=== PATIENT | male | born 1985 | race African-American/Black ===

== ENCOUNTER 2016-12-19 18:05 | Emergency (ER) | payer MEDICAID ==
--- NOTE | 2016-12-19 18:12 | ER Document Report ---
ED Medical Screen (RME) - General Stated Complaint: SUICIDAL IDEATION Mode of Arrival: Ambulatory Information source: Patient Notes: Patient presents reporting suicidal ideations. Pt has been in contact with [facility]. Patient does report that he has had previous suicidal ideation with attempt in the past. Patient states that he has not been compliant with his medications. hx: Bipolar, hypertension, diabetes, schizophrenia I have greeted and performed a rapid initial assessment of this patient. A comprehensive ED assessment and evaluation of the patient, analysis of test results and completion of the medical decision making process will be conducted by additional ED providers. Physical Exam - Vital signs Vitals: Temp Pulse Resp BP Pulse Ox 98.6 F 87 14 135/67 H 96 12/19/16 18:12 12/19/16 18:12 12/19/16 18:12 12/19/16 18:12 12/19/16 18:12 - Psychological Associated symptoms: Restlessness, Visual hallucinations Course - Vital Signs Vital signs: Temp Pulse Resp BP Pulse Ox 98.6 F 87 14 135/67 H 96 12/19/16 18:12 12/19/16 18:12 12/19/16 18:12 12/19/16 18:12 12/19/16 18:12
--- NOTE | 2016-12-19 19:07 | EKG REPORT ---
SEVERITY:- OTHERWISE NORMAL ECG - SINUS RHYTHM BORDERLINE LEFT AXIS DEVIATION : Confirmed by: Shemar Hansen MD 19-Dec-2016 19:07:23
[2016-12-19 19:09] LABS: ABSOLUTE EOSINOPHILS # (AUTO) 0.1 10^3/uL (0.0-0.6); ABSOLUTE LYMPHOCYTES (AUTO) 1.9 10^3/uL (0.5-4.7); ABSOLUTE MONOCYTES (AUTO) 0.4 10^3/uL (0.1-1.4); ABSOLUTE NEUT (AUTO) 3.2 10^3/uL (1.7-8.2); BASOPHILS % (AUTO) 0.6 % (0-2); HEMATOCRIT 45.5 % (37.9-51.0); HEMOGLOBIN 15.3 g/dL (13.5-17.0); HGB HCT DIFFERENCE 0.4; LYMPHOCYTES % (AUTO) 33.5 % (13-45); MEAN CORPUSCULAR HEMOGLOBIN 27.3 pg (27.0-33.4); MEAN CORPUSCULAR HGB CONC 33.6 g/dL (32.0-36.0); MEAN CORPUSCULAR VOLUME 81 fl (80-97); MONOCYTES % (AUTO) 7.4 % (3-13); RED CELL DISTRIBUTION WIDTH 15.2 % (11.5-14.0); SEGMENTED NEUTROPHILS % (AUTO) 56.5 % (42-78); WHITE BLOOD COUNT 5.7 10^3/uL (4.0-10.5)
[2016-12-19 19:22] LABS: APPEARANCE,URINE CLEAR; BILIRUBIN,URINE NEGATIVE (NEGATIVE); GLUCOSE, URINE NEGATIVE (NEGATIVE); KETONES,URINE 20 mg/dL (NEGATIVE); LEUKOCYTE ESTERASE,URINE NEGATIVE (NEGATIVE); NITRITE,URINE NEGATIVE (NEGATIVE); PROTEIN,URINE NEGATIVE (NEGATIVE); URINE SPECIFIC GRAVITY 1.021; UROBILINOGEN,URINE NEGATIVE mg/dL (<2.0)
[2016-12-19 19:30] LABS: ALANINE AMINOTRANSFERASE 30 U/L (21-72); ALBUMIN 4.5 g/dL (3.5-5.0); ALCOHOL < 10 mg/dL (NONE DETECTED); ALKALINE PHOSPHATASE 60 U/L (38-126); ANION GAP 18 (5-19); ASPARTATE AMINO TRANSFERASE 26 U/L (17-59); BILIRUBIN,DIRECT 0.4 mg/dL (0.0-0.4); BILIRUBIN,TOTAL 0.7 mg/dL (0.2-1.3); BLOOD UREA NITROGEN 19 mg/dL (7-20); CARBON DIOXIDE 22 mmol/L (22-30); CHLORIDE 100 mmol/L (98-107); CREATININE RESULT 1.04 mg/dL (0.52-1.25); GLUCOSE 91 mg/dL (75-110); POTASSIUM 4.3 mmol/L (3.6-5.0); SODIUM 140.3 mmol/L (137-145); TOTAL PROTEIN 7.9 g/dL (6.3-8.2)
[2016-12-19 19:37] LABS: URINE BARBITURATES SCREEN NEGATIVE; URINE METHADONE SCREEN NEGATIVE; URINE OPIATES LOW NEGATIVE; URINE PHENCYCLIDINE SCREEN NEGATIVE
--- NOTE | 2016-12-19 22:52 | ER Document Report ---
ED Psych Disorder / Suicide - General Time seen by provider: 22:50 Mode of Arrival: Ambulatory Information source: Patient, Outside Facility Records TRAVEL OUTSIDE OF THE [place] IN LAST 30 DAYS: No - HPI Patient complains to provider of: Suicidal attempt Associated symptoms: Other - See above <TIFFANY BARAJAS - Last Filed: 12/20/16 01:11> <LISA SAINI - Last Filed: 12/20/16 03:29> - General Chief Complaint: Suicidal Ideation Stated Complaint: SUICIDAL IDEATION Notes: Patient is a 31 year old male, with a past medical history including self harm, who presents to the emergency department from a care home after attempted suicide earlier today. Patient reportedly tried to hang himself in the bathroom. Patient is unhappy with his living situation and reportedly would like to harm others in the care home. Patient is refusing food and would like his medications. (TIFFANY BARAJAS) - Related Data Allergies/Adverse Reactions: codeine Allergy (Verified 12/19/16 18:21) haloperidol [From Haldol] Allergy (Verified 12/19/16 18:21) lisinopril Allergy (Verified 12/19/16 18:21) Past Medical History - General Information source: Patient - Social History Smoking Status: Never Smoker Chew tobacco use (# tins/day): No Frequency of alcohol use: None Drug Abuse: None Family History: Reviewed & Not Pertinent Patient has suicidal ideation: No Patient has homicidal ideation: No <TIFFANY BARAJAS - Last Filed: 12/20/16 01:11> Review of Systems - Review of Systems Constitutional: No symptoms reported EENT: No symptoms reported Cardiovascular: No symptoms reported Respiratory: No symptoms reported Gastrointestinal: No symptoms reported Genitourinary: No symptoms reported Male Genitourinary: No symptoms reported Musculoskeletal: No symptoms reported Skin: No symptoms reported Hematologic/Lymphatic: No symptoms reported Neurological/Psychological: See HPI, Suicidal ideation -: Yes All other systems reviewed and negative <TIFFANY BARAJAS - Last Filed: 12/20/16 01:11> Physical Exam - Vital signs Interpretation: Normal - General General appearance: Appears well, Alert - HEENT Head: Normocephalic, Atraumatic - Respiratory Respiratory status: No respiratory distress Chest status: Nontender Breath sounds: Normal Chest palpation: Normal - Cardiovascular Rhythm: Regular Heart sounds: Normal auscultation Murmur: No - Abdominal Inspection: Normal Distension: No distension Bowel sounds: Normal Tenderness: Nontender Organomegaly: No organomegaly - Extremities General upper extremity: Normal inspection General lower extremity: Normal inspection - Neurological Neuro grossly intact: Yes Cognition: Normal Orientation: AAOx4 Fernando Coma Scale Eye Opening: Spontaneous Bronson Coma Scale Verbal: Oriented Fernando Coma Scale Motor: Obeys Commands Fernando Coma Scale Total: 15 Speech: Normal - Psychological Associated symptoms: Paranoid, Other - Odd affect - Skin Skin Temperature: Warm Skin Moisture: Dry Skin Color: Normal Skin irregularity: other - Multiple old healed linear lacerations to entire body <TIFFANY BARAJAS - Last Filed: 12/20/16 01:11> - Psychological Associated symptoms: Irritable <LISA SAINI - Last Filed: 12/20/16 03:29> - Vital signs Vitals: Temp Pulse Resp BP Pulse Ox 98.6 F 87 14 135/67 H 96 12/19/16 18:12 12/19/16 18:12 12/19/16 18:12 12/19/16 18:12 12/19/16 18:12 Course - Laboratory Result Diagrams: 12/19/16 18:40 12/19/16 18:40 <TIFFANY BARAJAS - Last Filed: 12/20/16 01:11> - Laboratory Result Diagrams: 12/19/16 18:40 12/19/16 18:40 <LISA SAINI - Last Filed: 12/20/16 03:29> - Re-evaluation Re-evalutation: 12/19 Patient presents after stating that he would like to hurt people at his residence and also implying that he was going to hurt himself. Patient is medically stable. He'll be held for psychiatric evaluation as he does seem to be a danger to himself and/or others at this time. (LISA SAINI) - Vital Signs Vital signs: Temp Pulse Resp BP Pulse Ox 98.6 F 87 14 135/67 H 96 12/19/16 18:12 12/19/16 18:12 12/19/16 18:12 12/19/16 18:12 12/19/16 18:12 - Laboratory Laboratory results interpreted by me: 03/12/19/16 12/19/16 18:40 18:40 18:45 RBC 5.60 H RDW 15.2 H Urine Ketones 20 H Salicylates < 1.0 L Acetaminophen < 10 L Discharge <TIFFANY BARAJAS - Last Filed: 12/20/16 01:11> <LISA SAINI - Last Filed: 12/20/16 03:29> - Discharge Clinical Impression: Homicidal ideation, Suicidal ideation Condition: Stable Disposition: PSYCH HOSP/UNIT Scribe Attestation: 12/20/16 03:29 I personally performed the services described in the documentation, reviewed and edited the documentation which was dictated to the scribe in my presence, and it accurately records my words and actions. (LISA SAINI) Scribe Documentation - Scribe Written by Scribe:: cole Lee, 12/19/16, [id number] acting as scribe for :: Flora <TIFFANY BARAJAS - Last Filed: 12/20/16 01:11>
[2016-12-20] MEDS ORDERED: LORAZEPAM INJ 2 MG/1 ML VIAL IM ONE (04:55)
--- NOTE | 2016-12-20 09:51 | ER Document Report ---
Doctor's Note Notes: 12/20/16 09:48 Chart reviewed. Patient is a 31-year-old male [facility] after he attempted to hang himself. Patient is under IVC papers. + In the ER he became agitated and banged his head on the wall several times. He did receive Ativan for the agitation. This morning he is drowsy from the Ativan but denies any pain or complaints. He is not very cooperative with the exam and is not motivated to answer many questions. He does have some minor swelling to his forehead but no open wound. He is neurologically intact within the constraints of his cooperation with exam. Will obtain head CT to ensure no intracranial injury. 12/20/16 15:57 Notified the patient was agitated. Reportedly he has been taking the bed sheets and trying to tie them in a manner such that he couldn't hang himself. He was also noted to try to plug the sink and fill it with water so that he could dunk his head in the sink. Zyprexa 10 mg IM ordered. Pt not agreeable or cooperative to take po meds. He will be placed back in restraints at this time given the fact that he is an active danger to himself and others and is not redirectable at all at this time.
--- NOTE | 2016-12-20 11:03 | PSYCHOLOGICAL NOTE ---
Psych Note - Psych Note Psych Note: Patient presented to [facility] ED with a past medical history including self harm, who presents to the emergency department from a shelter after attempted suicide earlier today. Patient reportedly tried to hang himself in the bathroom. Patient is unhappy with his living situation and reportedly would like to harm others in the shelter. Clinician conducted a chart review and noted the attending nurse indicated concerns at [id number]. The "patient noted to be in corner of room looking around at ceiling. This nurse approached patient room and noted patient to have both blankets tied in knots. This nurse took blankets and took knots out stating to patient "If you tie knots in these, I am going to have to take them from you." Patient sat on bed with flat affect staring at wall. Patient then jumped out of bed and began to run and hit his head against the wall. This occurred three times. Security was called for assistance when patient jumped out of bed." At this time the patient is unable to engage in evaluation. Will attempt at a later time. 1330 Patient still will not speak. Patient makes brief eye contact but contact is with head lowered and eyes appear to be looking through you. Patient is rocking on the bed. 1507 Patient was identified to be constructing a noose out of his blankets.
[2016-12-20] MEDS ORDERED: OLANZAPINE 5 MG TABLET PO ONE (15:15)
[2016-12-20] MEDS ORDERED: OLANZAPINE INJ/PF 10 MG SDV IM ONE (15:25)
[2016-12-20] MEDS ORDERED: OLANZAPINE 5 MG TABLET PO SCH (18:00)
[2016-12-20] MEDS ORDERED: BENZTROPINE MESYLATE 1 MG TABLET PO ONE (19:30)
[2016-12-20] MEDS: DIVALPROEX SODIUM 500 MG TAB.SR.24H PO SCH ×2 (19:44→19:45)
[2016-12-21] MEDS ORDERED: OLANZAPINE INJ/PF 10 MG SDV IM ONE (04:16)
[2016-12-21] MEDS ORDERED: LORAZEPAM INJ 2 MG/1 ML VIAL IM ONE ×2 (09:14→23:19)
--- NOTE | 2016-12-21 10:11 | ER Document Report ---
Doctor's Note Notes: 12/21/16 10:07 Medical rounds: Chart reviewed and patient interviewed briefly. Patient apparently is here on IVC papers, presented with history of self-injurious behavior and has continued to exhibit this behavior while in ED. This morning he was reported to be quite agitated, and lorazepam was ordered for sedation. According to nurses notes he did sleep some during the night last night. He refused to eat any breakfast. He has needed restraints intermittently for his own safety and that of the ankle staff. Vital signs are satisfactory. Lab work is normal. Patient is observed to be sitting on the bed, rocking back and forth. He is in no apparent distress. He acknowledges my presence by making eye contact, but refuses to speak. He is medically stable pending reevaluation by the psychosocial team. 12/21/16 10:11
[2016-12-21] MEDS: DIVALPROEX SODIUM 500 MG TAB.SR.24H PO SCH ×2 (10:43→17:38)
[2016-12-21] MEDS: OLANZAPINE 5 MG TABLET PO SCH ×2 (10:44→17:39)
[2016-12-21] MEDS: BENZTROPINE MESYLATE 1 MG TABLET PO SCH (10:44)
--- NOTE | 2016-12-21 15:54 | PSYCHOLOGICAL NOTE ---
Psych Note - Psych Note Psych Note: Conducted check-in with patient who is a 31-year-old male who presented to days ago via EMS from his residential long-term. Note until today patient has not been verbally engaging in conversation has demonstrated self-injurious behaviors such as slamming his head against the wall, attempting to hang himself , and filling his sink with water with the plan of drowning himself. Patient was also physically restrained until this morning. Today he has been cooperative and calm. Patient did minimally verbally engage in conversation and states he does not want to return to the long-term. He states he has missed treated there and that one of the managers has other males come into the home at night with the intent on "jumping him." Patient states he is only lives at the long-term for a short while and while he is unable to narrow down to a specific time frame he does endorse possibly a couple of months. Patient states prior to the long-term he was at [facility] and before that he lived in [place]. Patient does state he has act services, and in fact provides business cards for each of his different providers from his scrubs pocket. Patient provided no other information. Patient is a poor historian. This clinician did read off his listed home medications per the [facility] run sheet, which he did acknowledge as Depakote, HCTZ, [place] made, metoprolol, Prozac, Seroquel, trazodone. He isn't did acknowledge that he is allergic to codeine and Haldol and lisinopril and previously diagnosed with schizophrenia, bipolar 2 disorder, depression, diabetes, and hypertension. Patient is alert and oriented to name and location. Patient's mood today was guarded with flat affect. Patient did not answer if he was suicidal or homicidal. He did acknowledge making the statement that he would burn the house down to protect himself and kill all of the people in it if it meant keeping the individuals away from him that he believes present with the intent to jump him. Patient denied A/VH. At this time it is unclear if he is responding to internal stimuli. It is also unclear if he's presenting with delusions. Thought processes were guarded, but also goal oriented towards not returning to the long-term as he stated numerous times he did not want to go back, and also asked where he would be going from this ED. Conversational speech was low for rate, tone, and prosody. Intellectual abilities were estimated below average range. Attention and focus were fair. Insight, judgment, impulse control were poor. Unspecified schizophrenia and other psychotic disorder, per history Unspecified bipolar disorder per history Unspecified depressive disorder per history Diabetes, per history Hypertension, per history Patient security representative left message for residential long-term to return contact. Will continue to attempt to gain additional information as well as patient's MAR. patient security representative also called our [facility] act team and left a message requesting additional information. Asians recommended to continue under involuntary commitment, minimally for additional observation and medication administration as he is not been on his prescribed medications (because they were not provided) throughout his episode the past couple of days. Patient has done physical damage to the reddy in his room and has significant bruising on his forehead. He has been medically cleared and today is calmer and more cooperative. I consulted with Dr. Mtz in regards to the care and management of this patient.
[2016-12-21] MEDS ORDERED: OLANZAPINE 5 MG TABLET PO SCH (18:00)
[2016-12-22] MEDS: BENZTROPINE MESYLATE 1 MG TABLET PO SCH (10:19)
[2016-12-22] MEDS: OLANZAPINE 5 MG TABLET PO SCH ×2 (10:19→17:42)
--- NOTE | 2016-12-22 16:03 | PSYCHOLOGICAL NOTE ---
Psych Note - Psych Note Psych Note: Conducted check-in with patient who is a 31-year-old male. Was asked to speak with patient when he became upset when he thought he lost 3 business cards of his service providers. Patient reportedly had the cards in the pocket of his paper scrubs and discarded after his shower this morning. Discussed with patient that yesterday this clinician photocopied said cards and could provide him with a copy. Patient was appropriate expressed gratitude. Patient stated he wanted to know where he was going from here. Discussed with patient that he would in all likelihood be returning to the [facility]p prior to any possible relocation. Discussed with patient his current presentation which does not support continued criteria for involuntary commitment patient acknowledges he has no reason to be in this emergency room. Patient also reports he has no place to stay. Patient states he would like to go and live with a friend, but does not have his number with him to call and ask. Patient adamant that he is refusing to return to the usp. Patient states he is his own guardian. Patient denies suicidal/homicidal ideations, intent, plan, means. Patient's usp, [facility] states the patient is no longer a resident in his usp. Prompted to call marking machine tender. Mr. Gomez, marking machine tender of [facility] : states they cannot take the patient back into their facility due to exhibiting signs of being dangerous to staff, himself, and other residents. He states he is not required to provide a 30 day, or any notice to discharge. Contacted patient's ACTT provider [employer] with [facility]: [place] [facility] requesting return contact. Did track down the crisis number for [facility], who states the patient is not listed as one of their clients. Additionally, called and left a message for [facility] [place] [facility] requesting return contact as they were the last known provider. Spoke with [facility] who states the patient is a member of [facility] ACTT. She provided no meaningful information, except did provide phone contact for [facility]. She states the load out supervisor will call. County Commissioner, Alexander with [facility] states the patient has only received their service for about a month. She states he has decompensated throughout this time. She states she met with him the other day and evaluated at which time he stated the voices were very loud and controlling. Discussed with load out supervisor that patient today has been calm and cooperative, has a therapeutic valproic acid level; however, refuses to return to the usp. Also advised load out supervisor that the usp refuses to allow patient to return. Requested assistance from [facility] [place] [facility] in facilitating an alternate placement and or assistance and homeless senior living. Patient is alert and oriented. Mood has been calm and cooperative with normal affect. Patient denies suicidal/homicidal ideations, intent, plan, means. Patient denies A/VH; delusions not noted. Patient was noted to be talking with no one else physically in the room. Thought processes were goal oriented towards remaining in the ER/and/or not returning to the usp. Conversational speech was WNL for this patient for rate, tone, and prosody. Intellectual abilities were estimated in the lower average range. Attention and focus were fair. Insight, judgment, impulse control were poor. Unspecified schizophrenia and other psychotic disorder, per history Unspecified bipolar disorder per history Unspecified depressive disorder per history Diabetes, per history Hypertension, per history Patient is psychiatrically cleared and recommended for discharge. Throughout his stay patient demonstrated behaviors with the intent of not returning to the usp. Patient endorses this today during conversation. Patient further acknowledged that he had no reason to be here in the emergency room and would like to leave. Patient currently presents at his baseline functioning to include rocking back and forth on the bed, shaking his foot when talking, etc. Patient denies thoughts of wanting to harm himself. Patient denies suicidal or homicidal ideations. Patient is his own guardian. Patient's ACTT provider will attempt to coordinate with the usp, retrieval of his belongings, and also the phone number for the friend with whom he wants to stay.
[2016-12-22] MEDS: DIVALPROEX SODIUM 500 MG TAB.SR.24H PO SCH (17:43)
--- NOTE | 2016-12-22 20:48 | ER Document Report ---
Doctor's Note Notes: 12/22/16 20:47 Patient seen and evaluated history of bipolar schizophrenia questionable use of medication not suicidal or homicidal has been seen and evaluated by the psychiatric team and they felt that he can be discharged at this point acting will calm and he will be prescribed Depakote Zyprexa and Cogentin he has adequate outpatient follow-up. Is not emergently suicidal or homicidal.
--- NOTE | 2016-12-22 21:27 | ER Document Report ---
Doctor's Note Notes: 12/22/16 21:24 Went to evaluate the patient again with active production team advisor present acting member states she cannot drive as far as he needs to go to get him to his friend 's house tonight. The plan per psychiatry was that the acting would drive him to a safe house. The activity member states she cannot drive him to a safe house tonight it is out of their restriction area. For that reason I cannot safely discharge him until he is seen and evaluated by psychiatry tomorrow and outpatient arrangements are made. He has received his Depakote Zyprexa and Jones is agitated time her 1 mg of Ativan. We'll reassess in a.m. for discharge planning
[2016-12-22] MEDS ORDERED: LORAZEPAM 1 MG TABLET PO ONE (21:59)
[2016-12-22] MEDS ORDERED: DIPHENHYDRAMINE HCL 50 MG CAPSULE PO ONE (23:52)
[2016-12-23] MEDS ORDERED: LORAZEPAM INJ 2 MG/1 ML VIAL IM ONE (01:11)
[2016-12-23 07:07] VITALS: BP 130/95
[2016-12-23] MEDS: OLANZAPINE 5 MG TABLET PO SCH (09:54)
[2016-12-23] MEDS: BENZTROPINE MESYLATE 1 MG TABLET PO SCH (09:55)
[2016-12-23] MEDS: DIVALPROEX SODIUM 500 MG TAB.SR.24H PO SCH (09:55)
--- NOTE | 2016-12-23 12:08 | ER Document Report ---
Doctor's Note Notes: 12/23/16 12:08 Rounds: Chart reviewed and patient interviewed. Vital signs are all normal. Lab studies are essentially normal. Patient has been assessed by mental health feels he can be discharged for outpatient follow-up. A member of his psychiatric care team is here to take the patient. Patient appears to be medically stable for transfer or discharge. Bhanu Ariza M.D.
== END 2016-12-23 12:32 | disposition home or self-care (01) ==
LOC: ER 18:05
DX: F25.9 Schizoaffective disorder, unspecified (principal); F31.9 Bipolar disorder, unspecified; R22.0 Localized swelling, mass and lump, head; W22.01XA Walked into wall, initial encounter; Y92.238 Other place in hospital as the place of occurrence of the external cause; Z78.1 Physical restraint status; T14.91 Suicide attempt; X71 Intentional self-harm by drowning and submersion; X83.8XXA Intentional self-harm by other specified means, initial encounter; Y92.10 Unspecified residential institution as the place of occurrence of the external cause; R45.850 Homicidal ideations; Z88.5 Allergy status to narcotic agent; R45.1 Restlessness and agitation; E11.9 Type 2 diabetes mellitus without complications; I10 Essential (primary) hypertension; Z88.8 Allergy status to other drugs, medicaments and biological substances; Z91.14 Patient's other noncompliance with medication regimen
CPT/HCPCS: 93005; 99285; 96372; 36415; 80307 ×4; 85025; 80053; 81001; 80164; 70450; 93010; J3490 ×12; J2060 ×3

== ENCOUNTER 2016-12-27 00:37 | Emergency (ER) | payer MEDICAID ==
--- NOTE | 2016-12-27 01:44 | ER Document Report ---
ED General - General Chief Complaint: Psych Problem Stated Complaint: PSYCH EVAL Notes: Patient is a 31-year-old male with past medical history of bipolar disorder currently homeless who presents with suicidal ideation and self-inflicted wounds to his left upper extremity using a razor blade. Patient states that he cut his arm repeatedly in an attempt to kill himself as well as a stress relief. He admits to ongoing suicidal ideation. Reports his triggers include being homeless currently. He has not noted that the medication seemed to improve his symptoms. He has tried to harm himself in the past was recently discharged from this emergency department with similar complaints. He denies any additional acute medical concerns. He is unsure when his last tetanus immunization was given. Denies any homicidal ideation, delusions or hallucinations. TRAVEL OUTSIDE OF THE [place] IN LAST 30 DAYS: No - Related Data Allergies/Adverse Reactions: codeine Allergy (Verified 12/19/16 18:21) haloperidol [From Haldol] Allergy (Verified 12/19/16 18:21) lisinopril Allergy (Verified 12/19/16 18:21) Past Medical History - General Information source: Patient - Social History Smoking Status: Never Smoker Frequency of alcohol use: None Drug Abuse: None Lives with: Homeless Family History: Reviewed & Not Pertinent Renal/ Medical History: Denies: Hx Peritoneal Dialysis Review of Systems - Review of Systems Notes: Constitutional: Negative for fever. HENT: Negative for sore throat. Eyes: Negative for visual changes. Cardiovascular: Negative for chest pain. Respiratory: Negative for shortness of breath. Gastrointestinal: Negative for abdominal pain, vomiting or diarrhea. Genitourinary: Negative for dysuria. Musculoskeletal: Negative for back pain. Skin: Positive for multiple lacerations left forearm Neurological: Negative for headaches, weakness or numbness. 10 point ROS negative except as marked above and in HPI. Physical Exam - Vital signs Vitals: Temp Pulse Resp BP Pulse Ox 98.4 F 104 H 20 120/58 L 95 12/27/16 00:50 12/27/16 00:50 12/27/16 00:50 12/27/16 00:50 12/27/16 00:50 Interpretation: Tachycardic Notes: PHYSICAL EXAMINATION: GENERAL: Well-appearing, well-nourished and in no acute distress. HEAD: Atraumatic, normocephalic. EYES: Pupils equal round and reactive to light, extraocular movements intact, sclera anicteric, conjunctiva are normal. ENT: nares patent, oropharynx clear without exudates. Moist mucous membranes. NECK: Normal range of motion, supple without lymphadenopathy LUNGS: Breath sounds clear to auscultation bilaterally and equal. No wheezes rales or rhonchi. HEART: Regular rate and rhythm without murmurs ABDOMEN: Soft, nontender, normoactive bowel sounds. No guarding, no rebound. No masses appreciated. EXTREMITIES: Normal range of motion, no pitting or edema. No cyanosis. NEUROLOGICAL: No focal neurological deficits. Moves all extremities spontaneously and on command. PSYCH: Intellectual capacity seems to be at the low end of normal. Poor eye contact. Expressing suicidal ideation SKIN: Warm, Dry, normal turgor, multiple superficial lacerations to the left forearm and a single laceration to the right forearm Course - Re-evaluation Re-evalutation: 12/27/16 01:42 Patient presents after self-inflicting multiple superficial wounds to his left forearm. No wound requiring repair. Tetanus will be updated. He denies any additional medical complaints or concerns. Admits to ongoing SI with a plan to cut himself more and deeper. [place] homicidal ideation. He is currently homeless and states he has not been taking his medications during that time. Will proceed with medical screening laboratories, IVC and reassess 12/27/16 02:33 Medical screening laboratories are unremarkable. Patient remains calm and cooperative. I received paperwork have been filed. He is medically cleared for evaluation by psychiatry. - Vital Signs Vital signs: Temp Pulse Resp BP Pulse Ox 98.4 F 104 H 20 120/58 L 95 12/27/16 00:50 12/27/16 00:50 12/27/16 00:50 12/27/16 00:50 12/27/16 00:50 - Laboratory Result Diagrams: 12/27/16 01:13 12/27/16 01:13 Laboratory results interpreted by me: 12/27/16 12/27/16 12/27/16 01:13 01:13 01:13 RDW 15.2 H Monocytes % 15.0 H Sodium 145.6 H Urine Ketones TRACE H Salicylates < 1.0 L Acetaminophen < 10 L Valproic Acid 47.5 L - EKG Interpretation by Me Additional EKG results interpreted by me: 12/27/16 01:46 Sinus rhythm. Rate 89. No ST elevations or depressions. QTC is 419. Discharge - Discharge Clinical Impression: Suicidal ideation
[2016-12-27 01:51] LABS: ABSOLUTE EOSINOPHILS # (AUTO) 0.1 10^3/uL (0.0-0.6); ABSOLUTE LYMPHOCYTES (AUTO) 1.5 10^3/uL (0.5-4.7); BASOPHILS % (AUTO) 0.4 % (0-2); EOSINOPHILS % (AUTO) 1.6 % (0-6); HEMATOCRIT 41.9 % (37.9-51.0); HEMOGLOBIN 14.1 g/dL (13.5-17.0); HGB HCT DIFFERENCE 0.4; LYMPHOCYTES % (AUTO) 22.3 % (13-45); MEAN CORPUSCULAR HEMOGLOBIN 27.5 pg (27.0-33.4); MEAN CORPUSCULAR HGB CONC 33.5 g/dL (32.0-36.0); MEAN CORPUSCULAR VOLUME 82 fl (80-97); RED BLOOD COUNT 5.12 10^6/uL (4.35-5.55); RED CELL DISTRIBUTION WIDTH 15.2 % (11.5-14.0); SEGMENTED NEUTROPHILS % (AUTO) 60.7 % (42-78); WHITE BLOOD COUNT 6.5 10^3/uL (4.0-10.5)
[2016-12-27 02:01] LABS: APPEARANCE,URINE CLEAR; BILIRUBIN,URINE NEGATIVE (NEGATIVE); GLUCOSE, URINE NEGATIVE (NEGATIVE); KETONES,URINE TRACE mg/dL (NEGATIVE); LEUKOCYTE ESTERASE,URINE NEGATIVE (NEGATIVE); NITRITE,URINE NEGATIVE (NEGATIVE); PROTEIN,URINE NEGATIVE (NEGATIVE); URINE SPECIFIC GRAVITY 1.026; UROBILINOGEN,URINE NEGATIVE mg/dL (<2.0)
[2016-12-27 02:11] LABS: ALANINE AMINOTRANSFERASE 37 U/L (21-72); ALKALINE PHOSPHATASE 65 U/L (38-126); ANION GAP 14 (5-19); ASPARTATE AMINO TRANSFERASE 45 U/L (17-59); BILIRUBIN,DIRECT 0.2 mg/dL (0.0-0.4); BILIRUBIN,TOTAL 0.4 mg/dL (0.2-1.3); BLOOD UREA NITROGEN 14 mg/dL (7-20); CALCIUM 9.7 mg/dL (8.4-10.2); CARBON DIOXIDE 27 mmol/L (22-30); CHLORIDE 105 mmol/L (98-107); GLUCOSE 93 mg/dL (75-110); SODIUM 145.6 mmol/L (137-145); TOTAL PROTEIN 7.1 g/dL (6.3-8.2)
[2016-12-27 02:16] LABS: VALPROIC ACID 47.5 ug/mL (50.0-120.0)
[2016-12-27 02:21] LABS: ALCOHOL < 10 mg/dL (NONE DETECTED)
[2016-12-27] MEDS ORDERED: DIAZEPAM 5 MG TABLET PO ONE ×2 (02:32→23:47)
[2016-12-27] MEDS ORDERED: DIPH/PERTUSS(ACELL)/TETANUS VAC/PF 0.5 ML SYR (>=10YO) IM ONE (02:32)
[2016-12-27 02:53] LABS: URINE BARBITURATES SCREEN NEGATIVE; URINE METHADONE SCREEN NEGATIVE; URINE OPIATES LOW NEGATIVE; URINE PHENCYCLIDINE SCREEN NEGATIVE
[2016-12-27] MEDS ORDERED: DIAZEPAM INJ 10 MG/2 ML DISP.SYRIN IM ONE (03:19)
[2016-12-27] MEDS ORDERED: DIAZEPAM INJ 10 MG/2 ML DISP.SYRIN ONE (03:22)
[2016-12-27] MEDS ORDERED: OLANZAPINE INJ/PF 10 MG SDV IM ONE ×2 (03:47→17:52)
[2016-12-27] MEDS ORDERED: DIPHENHYDRAMINE HCL 50 MG/ML VIAL IV ONE (03:47)
--- NOTE | 2016-12-27 10:55 | EKG REPORT ---
SEVERITY:- OTHERWISE NORMAL ECG - SINUS RHYTHM LEFT AXIS DEVIATION : Confirmed by: Michelle Bolivar 27-Dec-2016 10:54:43
[2016-12-27] MEDS ORDERED: BENZTROPINE MESYLATE 1 MG TABLET PO ONE (17:52)
--- NOTE | 2016-12-27 20:22 | ER Document Report ---
Doctor's Note Notes: 12/27/16 20:21 Rounds: From earlier today, late entry now. Patient has been relatively calm most of the time here although he did express some feelings of agitation this afternoon. He is being evaluated for bipolar disorder and suicidal ideation. He is also homeless. Vital signs are all normal. Patient's lab studies were all normal. Patient appears to be medically stable for transfer or discharge. Bhanu Ariza M.D.
[2016-12-27] MEDS ORDERED: OLANZAPINE 5 MG TABLET PO ONE (23:47)
--- NOTE | 2016-12-28 09:15 | ER Document Report ---
Doctor's Note Notes: 12/28/16 09:15 As the rounding physician for our psychiatric patients, I have reviewed the chart, vitals, lab work. Patient has been examined and noted to be resting comfortably, denies any concerns . I am awaiting mental health in put. 12/28/16 10:09
--- NOTE | 2016-12-28 10:32 | PSYCHOLOGICAL NOTE ---
Psych Note - Psych Note Psych Note: Patient is a 31-year-old male with past medical history of bipolar disorder currently homeless who presents with suicidal ideation and self-inflicted wounds to his left upper extremity using a razor blade. Patient states that he cut his arm repeatedly in an attempt to kill himself as well as a stress relief. He admits to ongoing suicidal ideation. Reports his triggers include being homeless currently. 0830 Patient is currently unable to engage in evaluation because of medications; evaluation will occur at a later time. 1300 Attempted to engage patient, patient acts as if sleeping; will attempt again later 1600 Attempted to engage patient, unsucessful in getting patient to speak. Clinician notes that patient has no difficulties speaking with other [facility] staff.
--- NOTE | 2016-12-28 10:45 | PSYCHOLOGICAL NOTE ---
Psych Note - Psych Note Psych Note: Patient is a 31-year-old male with past medical history of bipolar disorder currently homeless who presents with suicidal ideation and self-inflicted wounds to his left upper extremity using a razor blade. Patient states that he cut his arm repeatedly in an attempt to kill himself as well as a stress relief. He admits to ongoing suicidal ideation. Reports his triggers include being homeless currently. Patient again acts as if unable to speak; clinician notes the patient told the attending nurse he was just going to sleep while her was here. Patient is demonstrating manipulative behaviour in an attempt to further his stay. Patient has not demonstrated any behaviours to indicate he is in psychosis or in a manic state. Clinician notes the when awake the pateint rocks back and forth; however, this is baseline for this patient. Patient has a higher level of care through his ACT Team. As of midnight last night his services were transferred to [facility] with production team member Ava. 298.9 (F29) Unspecified schizophrenia and other psychotic disorder, per history 296.80 (F31.9) Unspecified bipolar disorder per history 311 (F32.9) Unspecified depressive disorder per history Diabetes, per history Hypertension, per history Ash was contacted and confirmed he will be at [facility] ED to bulk picker his client. Patient is recommended to rescind IVC and is considered psychiatrically clear for discharge. Patient will continue with his higher level of care though his assigned ACT Team through [facility]. Dr. Mtz was consulted on the care and management of his patient; attending paco is in agreement with recommendations and disposition.
[2016-12-28 11:17] VITALS: BP 122/51
== END 2016-12-28 12:07 ==
LOC: ER 00:37
DX: S51.812A Laceration without foreign body of left forearm, initial encounter (principal); S51.811A Laceration without foreign body of right forearm, initial encounter; X78.8XXA Intentional self-harm by other sharp object, initial encounter; F25.9 Schizoaffective disorder, unspecified; F31.9 Bipolar disorder, unspecified; R00.0 Tachycardia, unspecified; Z59.0 Homelessness; Z78.1 Physical restraint status; Z88.5 Allergy status to narcotic agent; Z88.8 Allergy status to other drugs, medicaments and biological substances; Z23 Encounter for immunization
CPT/HCPCS: 93005; 99285; 96372; 90471; 96374; 36415; 80307 ×4; 85025; 80053; 81001; 80164; 90715; 93010; J3490 ×3; J3360; J1200

== ENCOUNTER 2016-12-31 05:46 | Emergency (ER) | payer MEDICAID ==
[2016-12-31 06:33] LABS: ABSOLUTE BASOPHILS # (AUTO) 0.1 10^3/uL (0.0-0.2); ABSOLUTE EOSINOPHILS # (AUTO) 0.2 10^3/uL (0.0-0.6); ABSOLUTE LYMPHOCYTES (AUTO) 3.1 10^3/uL (0.5-4.7); ABSOLUTE MONOCYTES (AUTO) 0.6 10^3/uL (0.1-1.4); ABSOLUTE NEUT (AUTO) 2.2 10^3/uL (1.7-8.2); BASOPHILS % (AUTO) 0.9 % (0-2); EOSINOPHILS % (AUTO) 3.3 % (0-6); HEMATOCRIT 40.5 % (37.9-51.0); HEMOGLOBIN 13.6 g/dL (13.5-17.0); HGB HCT DIFFERENCE 0.3; LYMPHOCYTES % (AUTO) 50.5 % (13-45); MEAN CORPUSCULAR HEMOGLOBIN 27.5 pg (27.0-33.4); MEAN CORPUSCULAR HGB CONC 33.5 g/dL (32.0-36.0); MEAN CORPUSCULAR VOLUME 82 fl (80-97); RED BLOOD COUNT 4.93 10^6/uL (4.35-5.55); RED CELL DISTRIBUTION WIDTH 14.4 % (11.5-14.0); SEGMENTED NEUTROPHILS % (AUTO) 35.3 % (42-78); WHITE BLOOD COUNT 6.2 10^3/uL (4.0-10.5)
[2016-12-31 06:49] LABS: APPEARANCE,URINE CLEAR; BILIRUBIN,URINE NEGATIVE (NEGATIVE); GLUCOSE, URINE NEGATIVE (NEGATIVE); KETONES,URINE NEGATIVE (NEGATIVE); LEUKOCYTE ESTERASE,URINE NEGATIVE (NEGATIVE); NITRITE,URINE NEGATIVE (NEGATIVE); PROTEIN,URINE NEGATIVE (NEGATIVE); UROBILINOGEN,URINE NEGATIVE mg/dL (<2.0)
[2016-12-31 06:53] LABS: ALANINE AMINOTRANSFERASE 30 U/L (21-72); ALCOHOL < 10 mg/dL (NONE DETECTED); ALKALINE PHOSPHATASE 67 U/L (38-126); ANION GAP 16 (5-19); ASPARTATE AMINO TRANSFERASE 36 U/L (17-59); BILIRUBIN,DIRECT 0.3 mg/dL (0.0-0.4); BILIRUBIN,TOTAL 0.3 mg/dL (0.2-1.3); BLOOD UREA NITROGEN 12 mg/dL (7-20); CALCIUM 9.5 mg/dL (8.4-10.2); CARBON DIOXIDE 23 mmol/L (22-30); CHLORIDE 106 mmol/L (98-107); CREATININE RESULT 0.83 mg/dL (0.52-1.25); GLUCOSE 108 mg/dL (75-110); POTASSIUM 3.6 mmol/L (3.6-5.0); SODIUM 145.2 mmol/L (137-145); TOTAL PROTEIN 7.2 g/dL (6.3-8.2)
[2016-12-31 07:03] LABS: URINE BARBITURATES SCREEN NEGATIVE; URINE METHADONE SCREEN NEGATIVE; URINE OPIATES LOW NEGATIVE; URINE PHENCYCLIDINE SCREEN NEGATIVE
--- NOTE | 2016-12-31 09:42 | PSYCHOLOGICAL NOTE ---
Psych Note - Psych Note Psych Note: Patient is a 31-year-old male who presented early this morning around 5 AM with c/o wanting to self-harm by means of cutting/stabbing himself. Patient has become well known to this clinician as well as this department with multiple recent presentations. Patient is reportedly diagnosed with schizophrenia and also receives enhanced services via [facility]. Patient reported upon arrival that his current stressors were arguing with roommates. Patient adamant this morning that he does not want to commit suicide or . Patient states he has a cutter and wanting to cut. Patient declines to report what he and his roommate were arguing about, but does state she did not tell him that he could not return. Patient states he does not want to go back. Discussed with patient that he is his own guardian he can choose whether or not he returns to live with his roommate are not; however, the hospital is unable to assist with any long-term placement. Patient was encouraged to utilize his ACTT crisis phone number. Patient states when he gets depressed he goes to the ER. Discussed with patient use and misuse of emergency services and again prompted patient to utilize his ACTT. Patient states he has been compliant with his medications, but states he is almost out. Patient's ACTT Provider, ELIZABETH Aleman states: they were aware he had presented to the emergency room and do not have concerns that the patient will attempt to commit suicide. meat team lead in agreement that patient does not meet criteria for involuntary commitment and states he will have a staff member present hopefully within the hour to meet with the patient and discussed his placement/residential options. Patient is alert and oriented. Mood is euthymic with normal affect. Patient denies suicidal/homicidal ideations, intent, plan, means. Patient acknowledges he has a cutter and does not intend to commit suicide via cutting. Patient denies A/VH; delusions not noted. Thought processes were organized. Conversational speech was WNL for rate, tone, and prosody. Intellectual abilities were estimated in the lower average range. Attention and focus were fair. Insight, judgment, impulse control were poor 298.9 (F29) Unspecified schizophrenia and other psychotic disorder, per history 296.80 (F31.9) Unspecified bipolar disorder per history 311 (F32.9) Unspecified depressive disorder per history Diabetes, per history Hypertension, per history Patient is psychiatrically cleared and recommended for discharge. A member from patient's enhanced service, ACTT, we will present and assist patient with discharging and identifying a living situation. Patient does not meet criteria for IVC per the [place] general statute 122C as he denies SI HI and is not actively engaging or following instructions of negative command hallucinations. I consulted with Dr. Mtz in regards to the care and management of this patient. ED MD is in agreement with disposition and recommendations.
--- NOTE | 2016-12-31 10:44 | ER Document Report ---
ED Psych Disorder / Suicide - General Mode of Arrival: Ambulatory Information source: Patient TRAVEL OUTSIDE OF THE [place] IN LAST 30 DAYS: No - HPI Patient complains to provider of: Agitated Onset: Just prior to arrival Quality of pain: No pain Suicide Risk Factors: Bipolar, Male, Schizophrenia Situational problems related to: Other - Roommate <SAROJ CORONA - Last Filed: 12/31/16 10:54> <KATELYNN CANELA - Last Filed: 12/31/16 21:25> - General Chief Complaint: Psych Problem Stated Complaint: SUICIDAL IDEATION Notes: Patient is a 31-year-old male, with a medical history including bipolar disorder and schizophrenia, presenting to the emergency department after having an argument with his roommate. Patient is well-known to this emergency department, and will not provide any information about the argument because he says he cannot remember. Patient states that his "roommate is a good friend and that he thinks they can work something out, they see eye to eye". (SAROJ CORONA) - Related Data Allergies/Adverse Reactions: codeine Allergy (Verified 12/19/16 18:21) haloperidol [From Haldol] Allergy (Verified 12/19/16 18:21) lisinopril Allergy (Verified 12/19/16 18:21) Past Medical History - General Information source: Patient, [facility] Records - Social History Smoking Status: Never Smoker Chew tobacco use (# tins/day): No Frequency of alcohol use: None Drug Abuse: None Family History: Reviewed & Not Pertinent - Past Medical History Cardiac Medical History: Reports: Hx Hypercholesterolemia, Hx Hypertension Renal/ Medical History: Denies: Hx Peritoneal Dialysis Psychiatric Medical History: Reports: Hx Bipolar Disorder, Hx Schizophrenia Surgical Hx: Negative <SAROJ CORONA - Last Filed: 12/31/16 10:54> Review of Systems - Review of Systems Constitutional: No symptoms reported EENT: No symptoms reported Cardiovascular: No symptoms reported Respiratory: No symptoms reported Gastrointestinal: No symptoms reported Genitourinary: No symptoms reported Male Genitourinary: No symptoms reported Musculoskeletal: No symptoms reported Skin: No symptoms reported Hematologic/Lymphatic: No symptoms reported Neurological/Psychological: See HPI, Depression -: Yes All other systems reviewed and negative <SAROJ CORONA - Last Filed: 12/31/16 10:54> Physical Exam - General General appearance: Alert, Lethargic - HEENT Head: Normocephalic, Atraumatic Eyes: Normal Pupils: PERRL - Respiratory Respiratory status: No respiratory distress Breath sounds: Normal - Cardiovascular Rhythm: Regular Heart sounds: Normal auscultation Murmur: No - Extremities General upper extremity: Normal inspection, Nontender General lower extremity: Normal inspection, Nontender - Neurological Neuro grossly intact: Yes Cognition: Normal [place] Coma Scale Eye Opening: Spontaneous [place] Coma Scale Verbal: Oriented [place] Coma Scale Motor: Obeys Commands [place] Coma Scale Total: 15 Speech: Normal - Psychological Associated symptoms: Normal affect, Normal mood - Skin Skin Temperature: Warm Skin Moisture: Dry Skin Color: Other - Multiple old cutting scars on extremities <SAROJ CORONA - Last Filed: 12/31/16 10:54> Course - Laboratory Result Diagrams: 12/31/16 06:20 12/31/16 06:20 <SAROJ CORONA - Last Filed: 12/31/16 10:54> - Laboratory Result Diagrams: 12/31/16 06:20 12/31/16 06:20 <KATELYNN CANELA - Last Filed: 12/31/16 21:25> - Re-evaluation Re-evalutation: 12/31/16 10:49 I personally performed the services described in the documentation, reviewed and edited the documentation which was dictated to my scribe in my presence, and it accurately records my words and actions. History presents emergency department following a argument with his roommate. He says he walked out called EMS came to the emergency department we've seen him on numerous occasions mental health has seen him and evaluated him a have contacted his acting they feel like he can be taken home. They've asked that I put in his thighs Zyprexa and Depakote doses that he would take in the morning. On examination she is alert and oriented he is not having medical complaints nor is he suicidal or homicidal. Does not pose a threat to himself or others at this moment will be discharged per the act team with follow-up per psychiatric team. 12/31/16 10:51 (KATELYNN CANELA) - Vital Signs Vital signs: Temp Pulse Resp BP Pulse Ox 98.0 F 100 16 125/80 100 12/31/16 11:00 12/31/16 11:00 12/31/16 11:00 12/31/16 11:00 12/31/16 11:00 - Laboratory Laboratory results interpreted by me: 12/31/16 12/31/16 12/31/16 06:05 06:20 06:20 RDW 14.4 H Seg Neutrophils % 35.3 L Lymphocytes % 50.5 H Sodium 145.2 H Urine Ascorbic Acid 40 H Salicylates < 1.0 L Acetaminophen < 10 L - EKG Interpretation by Me Additional EKG results interpreted by me: 12/31/16 10:51 EKG sinus tachycardia [address] segment elevation or depression (KATELYNN CANELA) Discharge <SAROJ CORONA - Last Filed: 12/31/16 10:54> <KATELYNN CANELA - Last Filed: 12/31/16 21:25> - Discharge Clinical Impression: schizophrenia unspecified Condition: Good Disposition: HOME, SELF-CARE Instructions: Bipolar Disorder ([facility]), Schizophrenia ([facility]) Additional Instructions: Please follow up with your enhanced community service provider, A [facility]. A member of your ACTT team will present and assist you in your discharge. Please take all of your medications as prescribed. Please utilize your 24 hour ACTT response/crisis numbers provided to you by your freight team associate, Ash. Scribe Documentation - Scribe Written by Shikha:: Saroj Corona 12/31/2016 1043 acting as scribe for :: Urbano <SAROJ CORONA - Last Filed: 12/31/16 10:54>
[2016-12-31] MEDS ORDERED: DIVALPROEX SODIUM 500 MG TAB.SR.24H PO ONE (10:47)
[2016-12-31] MEDS ORDERED: OLANZAPINE 5 MG TABLET PO ONE (10:47)
--- NOTE | 2016-12-31 10:48 | ER Document Report ---
ED Psych Disorder / Suicide - General Chief Complaint: Psych Problem Stated Complaint: SUICIDAL IDEATION Information source: Patient, DrFabrice Ellis, [facility] Records TRAVEL OUTSIDE OF THE [place] IN LAST 30 DAYS: No - HPI Patient complains to provider of: Other - thoughts of self harm; argument with roommate Onset: Just prior to arrival Onset was: Sudden Suicide Risk Factors: Lack of social support, Other mental health dx. Normal mood: Yes Associated symptoms: Normal affect, Normal mood Similar symptoms previously: Yes - last week Recently seen / treated by doctor: Yes - [facility] ER; [facility] - Related Data Allergies/Adverse Reactions: codeine Allergy (Verified 12/19/16 18:21) haloperidol [From Haldol] Allergy (Verified 12/19/16 18:21) lisinopril Allergy (Verified 12/19/16 18:21) Past Medical History - General Information source: Patient - Social History Smoking Status: Never Smoker Chew tobacco use (# tins/day): No Frequency of alcohol use: None Drug Abuse: None Family History: Reviewed & Not Pertinent - Past Medical History Cardiac Medical History: Reports: Hx Hypercholesterolemia, Hx Hypertension Renal/ Medical History: Denies: Hx Peritoneal Dialysis Psychiatric Medical History: Reports: Hx Bipolar Disorder, Hx Schizophrenia Surgical Hx: Negative Physical Exam - Vital signs Vitals: Temp Pulse Resp BP Pulse Ox 98.5 F 132 H 18 137/81 H 96 12/31/16 06:02 12/31/16 06:02 12/31/16 06:02 12/31/16 06:02 12/31/16 06:02 Course - Vital Signs Vital signs: Temp Pulse Resp BP Pulse Ox 98.5 F 107 H 16 128/87 H 97 12/31/16 06:02 12/31/16 07:00 12/31/16 07:00 12/31/16 07:00 12/31/16 07:00 - Laboratory Result Diagrams: 12/31/16 06:20 12/31/16 06:20 Laboratory results interpreted by me: 12/31/16 12/31/16 12/31/16 06:05 06:20 06:20 RDW 14.4 H Seg Neutrophils % 35.3 L Lymphocytes % 50.5 H Sodium 145.2 H Urine Ascorbic Acid 40 H Salicylates < 1.0 L Acetaminophen < 10 L Discharge - Discharge Condition: Good Disposition: HOME, SELF-CARE Instructions: Schizophrenia ([facility]), Bipolar Disorder ([facility]) Additional Instructions: Please follow up with your enhanced community service provider, [facility]. A member of your ACTT team will present and assist you in your discharge. Please take all of your medications as prescribed. Please utilize your 24 hour ACTT response/crisis numbers provided to you by your steam trap worker, Ash.
[2016-12-31 11:04] VITALS: BP 125/80
--- NOTE | 2016-12-31 13:11 | EKG REPORT ---
SEVERITY:- ABNORMAL ECG - SINUS TACHYCARDIA LEFT ANTERIOR FASCICULAR BLOCK : Confirmed by: Aga Pollard MD 31-Dec-2016 13:10:29
== END 2016-12-31 11:04 | disposition home or self-care (01) ==
LOC: ER 05:46
DX: F20.9 Schizophrenia, unspecified (principal); R45.851 Suicidal ideations
CPT/HCPCS: 93005; 99285; 36415; 80307 ×4; 85025; 80053; 81001; 93010; J3490 ×2

== ENCOUNTER 2016-12-31 21:56 | Emergency (ER) | payer MEDICAID ==
[2016-12-31 23:41] LABS: ABSOLUTE EOSINOPHILS # (AUTO) 0.2 10^3/uL (0.0-0.6); ABSOLUTE LYMPHOCYTES (AUTO) 2.8 10^3/uL (0.5-4.7); ABSOLUTE MONOCYTES (AUTO) 0.7 10^3/uL (0.1-1.4); ABSOLUTE NEUT (AUTO) 2.2 10^3/uL (1.7-8.2); BASOPHILS % (AUTO) 0.8 % (0-2); EOSINOPHILS % (AUTO) 2.9 % (0-6); HEMATOCRIT 38.6 % (37.9-51.0); HEMOGLOBIN 13.1 g/dL (13.5-17.0); HGB HCT DIFFERENCE 0.7; LYMPHOCYTES % (AUTO) 47.4 % (13-45); MEAN CORPUSCULAR HEMOGLOBIN 27.1 pg (27.0-33.4); MEAN CORPUSCULAR HGB CONC 33.9 g/dL (32.0-36.0); MEAN CORPUSCULAR VOLUME 80 fl (80-97); MONOCYTES % (AUTO) 12.1 % (3-13); RED BLOOD COUNT 4.82 10^6/uL (4.35-5.55); SEGMENTED NEUTROPHILS % (AUTO) 36.8 % (42-78); WHITE BLOOD COUNT 5.9 10^3/uL (4.0-10.5)
[2017-01-01 00:01] LABS: ALANINE AMINOTRANSFERASE 33 U/L (21-72); ALKALINE PHOSPHATASE 65 U/L (38-126); ANION GAP 10 (5-19); ASPARTATE AMINO TRANSFERASE 29 U/L (17-59); BILIRUBIN,DIRECT 0.1 mg/dL (0.0-0.4); BILIRUBIN,TOTAL 0.2 mg/dL (0.2-1.3); BLOOD UREA NITROGEN 13 mg/dL (7-20); CALCIUM 9.4 mg/dL (8.4-10.2); CARBON DIOXIDE 27 mmol/L (22-30); CHLORIDE 105 mmol/L (98-107); CREATININE RESULT 0.78 mg/dL (0.52-1.25); GLUCOSE 86 mg/dL (75-110); POTASSIUM 4.2 mmol/L (3.6-5.0); SODIUM 141.9 mmol/L (137-145); TOTAL PROTEIN 6.9 g/dL (6.3-8.2)
[2017-01-01 00:06] LABS: ALCOHOL < 10 mg/dL (NONE DETECTED)
--- NOTE | 2017-01-01 00:07 | ER Document Report ---
ED Psych Disorder / Suicide - General Chief Complaint: Psych Problem Stated Complaint: ARM LACERATIONS/EDIVC Time seen by provider: 00:06 Mode of Arrival: Stretcher Information source: Outside Facility Records TRAVEL OUTSIDE OF THE [place] IN LAST 30 DAYS: No - HPI Patient complains to provider of: Bizarre behavior, Self injury Onset: Just prior to arrival Onset was: Sudden Quality of pain: No pain Suicide Risk Factors: Male, Schizophrenia Injury to: Upper extremity Normal mood: No Associated symptoms: Flat affect, Restlessness Similar symptoms previously: Yes Recently seen / treated by doctor: Yes Notes: Patient is a 31-year-old male with a history of mental illness who came to the emergency room via EMS for self injury, at time of initial evaluation patient is sitting on the bed, he is rocking back and forth, picking at his superficial open wounds on the left forearm, he is nonverbal and will not answer my questions, he has evidence of old cuts to his face, his forehead and his bilateral upper extremities - Related Data Allergies/Adverse Reactions: codeine Allergy (Verified 12/19/16 18:21) haloperidol [From Haldol] Allergy (Verified 12/19/16 18:21) lisinopril Allergy (Verified 12/19/16 18:21) Past Medical History - General Information source: Outside Facility Records - Social History Smoking Status: Unknown if Ever Smoked Family History: Reviewed & Not Pertinent - Past Medical History Cardiac Medical History: Reports: Hx Hypercholesterolemia, Hx Hypertension Renal/ Medical History: Denies: Hx Peritoneal Dialysis Psychiatric Medical History: Reports: Hx Bipolar Disorder, Hx Schizophrenia Review of Systems - Review of Systems Constitutional: No symptoms reported EENT: No symptoms reported Cardiovascular: No symptoms reported Respiratory: No symptoms reported Gastrointestinal: No symptoms reported Genitourinary: No symptoms reported Male Genitourinary: No symptoms reported Musculoskeletal: No symptoms reported Skin: No symptoms reported Hematologic/Lymphatic: No symptoms reported Neurological/Psychological: See HPI -: Yes All other systems reviewed and negative Physical Exam - Vital signs Vitals: Temp Pulse BP Pulse Ox 98.4 F 102 H 157/91 H 95 12/31/16 22:08 12/31/16 22:08 12/31/16 22:08 12/31/16 22:08 Interpretation: Tachycardic - General General appearance: Alert - HEENT Head: Normocephalic, Other - Scarring to forehead from previous cutting behavior Eyes: Normal Conjunctiva: Normal Extraocular movements intact: Yes Eyelashes: Normal Pupils: PERRL Mucous membranes: Normal Pharynx: Normal - Respiratory Respiratory status: No respiratory distress - Cardiovascular Rhythm: Regular, Tachycardia - Abdominal Inspection: Normal - Back Back: Normal - Extremities Forearm: Other - Fresh superficial lacerations to the left forearm, scarring from previous superficial lacerations to the right forearm - Psychological Associated symptoms: Flat affect, Restlessness - Skin Skin Temperature: Warm Skin Moisture: Dry Skin Color: Normal Course - Re-evaluation Re-evalutation: 01/01/17 04:08 On initial evaluation patient was rocking the bed, picking at his superficial lacerations to the left forearm, and nonverbal, he would look at me when I asked a question but would not answer the question, a few hours later nursing staff reports that he is much more cooperative and talkative, at which time he reports that he is having suicidal thoughts, when I asked him if he had a plan he looked around the room and said radha watering here and sheets, he states that he has not been taking his medications as directed, but he is unable to give me any other information regarding his condition or the medications that he is supposed to be taking, he is agreeable to staying in the emergency room for an evaluation by mental health team as a voluntary patient, since patient has been in this emergency room multiple times over the past week for similar concerns, he will remain in the emergency room until the mental health team can reevaluate him and make arrangements with his ACTT wire walker to ensure patient safety 01/01/17 04:10 Patient's wounds have been dressed, his last tetanus shot was given here on and is therefore up-to-date, patient is now resting comfortably - Vital Signs Vital signs: Temp Pulse Resp BP Pulse Ox 98.4 F 102 H 157/91 H 95 12/31/16 22:08 12/31/16 22:08 12/31/16 22:08 12/31/16 22:08 - Laboratory Result Diagrams: 12/31/16 23:33 12/31/16 23:33 Laboratory results interpreted by me: 12/31/16 12/31/16 23:33 23:33 Hgb 13.1 L Seg Neutrophils % 36.8 L Lymphocytes % 47.4 H Salicylates < 1.0 L Acetaminophen < 10 L - EKG Interpretation by Me EKG shows normal: Sinus rhythm Rate: Normal Rhythm: NSR Discharge - Discharge Clinical Impression: Self-destructive behavior Condition: Stable Disposition: PSYCH HOSP/UNIT
[2017-01-01] MEDS ORDERED: LORAZEPAM INJ 2 MG/1 ML VIAL IM ONE (00:15)
[2017-01-01 09:20] LABS: APPEARANCE,URINE CLEAR; BILIRUBIN,URINE NEGATIVE (NEGATIVE); GLUCOSE, URINE NEGATIVE (NEGATIVE); KETONES,URINE TRACE mg/dL (NEGATIVE); LEUKOCYTE ESTERASE,URINE NEGATIVE (NEGATIVE); NITRITE,URINE NEGATIVE (NEGATIVE); PROTEIN,URINE NEGATIVE (NEGATIVE); URINE SPECIFIC GRAVITY 1.032; UROBILINOGEN,URINE NEGATIVE mg/dL (<2.0)
--- NOTE | 2017-01-01 09:37 | ER Document Report ---
Doctor's Note Notes: 01/01/17 09:36 Resting quietly on bed. No complaints. Plan is to discharge today. His ride is supposed to be here by noon today to pick him up. 01/01/17 13:10 Patient is being discharged. Blood pressure is a little elevated but he has not taken his blood pressure medication. He has medication at home but does not know what the name of it is. He is being advised by the nurse to please take his blood pressure medicine when he gets home.
[2017-01-01 09:41] LABS: URINE BARBITURATES SCREEN NEGATIVE; URINE METHADONE SCREEN NEGATIVE; URINE OPIATES LOW NEGATIVE; URINE PHENCYCLIDINE SCREEN NEGATIVE
--- NOTE | 2017-01-01 09:56 | ER Document Report ---
ED Psych Disorder / Suicide - General Mode of Arrival: Stretcher Information source: Patient, [facility] Office - ACTT Provider, A, [facility] Records TRAVEL OUTSIDE OF THE [place] IN LAST 30 DAYS: No - HPI Patient complains to provider of: Self injury - cuts on arms noted as superficial Onset: Just prior to arrival Suicide Risk Factors: Male, Schizophrenia Situational problems related to: Other - roommate Normal mood: Yes Associated symptoms: Normal affect - Affect is WNL for patient, Normal mood Similar symptoms previously: Yes - 12/31/16 Recently seen / treated by doctor: Yes - ED MD as well as ACTT MD <FAYE ROBERTS - Last Filed: 01/01/17 09:51> <RUBÉN JENKINS - Last Filed: 01/01/17 11:25> - General Chief Complaint: Psych Problem Stated Complaint: ARM LACERATIONS/EDIVC - Related Data Allergies/Adverse Reactions: codeine Allergy (Verified 12/19/16 18:21) haloperidol [From Haldol] Allergy (Verified 12/19/16 18:21) lisinopril Allergy (Verified 12/19/16 18:21) Past Medical History - General Information source: Patient, OM Records, Outside Facility Records - Social History Smoking Status: Unknown if Ever Smoked Family History: Reviewed & Not Pertinent - Past Medical History Cardiac Medical History: Reports: Hx Hypercholesterolemia, Hx Hypertension Renal/ Medical History: Denies: Hx Peritoneal Dialysis Psychiatric Medical History: Reports: Hx Bipolar Disorder, Hx Schizophrenia <FAYE ROBERTS - Last Filed: 01/01/17 09:51> Course - Laboratory Result Diagrams: 12/31/16 23:33 12/31/16 23:33 <FAYE ROBERTS - Last Filed: 01/01/17 09:51> - Laboratory Result Diagrams: 12/31/16 23:33 12/31/16 23:33 <RUBÉN JENKINS - Last Filed: 01/01/17 11:25> - Vital Signs Vital signs: Temp Pulse Resp BP Pulse Ox 97.6 F 69 14 124/82 95 01/01/17 07:20 01/01/17 07:20 01/01/17 07:20 01/01/17 07:20 01/01/17 07:20 - Laboratory Laboratory results interpreted by me: 12/31/16 12/31/16 01/01/17 23:33 23:33 08:45 Hgb 13.1 L Seg Neutrophils % 36.8 L Lymphocytes % 47.4 H Urine Ketones TRACE H Urine Ascorbic Acid 40 H Salicylates < 1.0 L Acetaminophen < 10 L Discharge <FAYE ROBERTS - Last Filed: 01/01/17 09:51> <RUBÉN JENKINS - Last Filed: 01/01/17 11:25> - Discharge Clinical Impression: Self-injurious behavior Condition: Stable Disposition: HOME, SELF-CARE Instructions: Schizophrenia ([facility]), Bipolar Disorder ([facility]) Additional Instructions: A member form your ACT Team is picking you up. Please work with your ACTT to utilize their 21/04 services, to include their crisis number. Please return to the ER should your symptoms worsen.
[2017-01-01] MEDS ORDERED: DIVALPROEX SODIUM 250 MG TABLET.DR PO ONE (10:10)
[2017-01-01] MEDS ORDERED: BENZTROPINE MESYLATE 1 MG TABLET PO ONE (10:11)
[2017-01-01] MEDS ORDERED: OLANZAPINE 5 MG TABLET PO ONE (10:11)
--- NOTE | 2017-01-01 10:12 | PSYCHOLOGICAL NOTE ---
Psych Note - Psych Note Psych Note: Patient is a 31 year old male who who presented via EMS last night with superficial self inflicted cuts to his arms. Patient is well known to this department and clinician as he has presented 4 x within the past 2 weeks with similar type complaints. Patient was seen and evaluated and discharged yesterday after he presented via EMS for depression secondary to an argument with his roommate. Patient today states he does not remember why he cut. Patient denies any current complaints. Patient's ACTT Provider, ELIZABETH Aleman states: a member from his team will present in the next few hours to pick the patient up. Requested the ACT team continue to work with the patient in regards to utilizing alternatives to EMS, such as their mobile crisis number as they are his 24 hr service. Patient is alert and oriented. Mood is euthymic with normal affect. Patient denies suicidal/homicidal ideations, intent, plan, means. Patient acknowledges he has a cutter and does not intend to commit suicide via cutting. Patient denies A/VH; delusions not noted. Thought processes were organized. Conversational speech was WNL for rate, tone, and prosody. Intellectual abilities were estimated in the lower average range. Attention and focus were fair. Insight, judgment, impulse control were poor 298.9 (F29) Unspecified schizophrenia and other psychotic disorder, per history 296.80 (F31.9) Unspecified bipolar disorder per history 311 (F32.9) Unspecified depressive disorder per history Diabetes, per history Hypertension, per history Patient is psychiatrically cleared and recommended for discharge. A member from patient's enhanced service, ACTT will present and assist patient with discharging. Patient does not meet criteria for IVC per the [place] general statute 122C as he denies SI HI and is not actively engaging or following instructions of negative command hallucinations. I consulted with Dr. Mtz in regards to the care and management of this patient. ED MD is in agreement with disposition and recommendations.
[2017-01-01 13:43] VITALS: BP 152/98
--- NOTE | 2017-01-01 22:10 | EKG REPORT ---
SEVERITY:- OTHERWISE NORMAL ECG - SINUS ARRHYTHMIA, RATE 79-115 LEFT AXIS DEVIATION : Confirmed by: Aga Pollard MD 01-Jan-2017 22:09:04
== END 2017-01-01 12:50 | disposition home or self-care (01) ==
LOC: ER 21:56
DX: S41.119A Laceration without foreign body of unspecified upper arm, initial encounter (principal); X78.9XXA Intentional self-harm by unspecified sharp object, initial encounter
CPT/HCPCS: 93005; 99285; 96372; 36415; 80307 ×4; 85025; 80053; 81001; 93010; J3490 ×3; J2060

== ENCOUNTER 2017-01-08 03:33 | Emergency (ER) | payer MEDICAID, OTHER ==
[2017-01-08] MEDS ORDERED: LORAZEPAM INJ 2 MG/1 ML VIAL IM ONE (03:43)
[2017-01-08] MEDS ORDERED: DIPHENHYDRAMINE HCL 50 MG/ML VIAL IM ONE (03:43)
[2017-01-08] MEDS ORDERED: ZIPRASIDONE MESYLATE INJ/PF 20 MG SDV IM ONE (03:45)
--- NOTE | 2017-01-08 04:12 | ER Document Report ---
ED General - General Chief Complaint: Psych Problem Stated Complaint: PSYCH EVAL TRAVEL OUTSIDE OF THE [place] IN LAST 30 DAYS: No - HPI Notes: Patient is a 31-year-old with schizophrenia and psychotic disorder, bipolar disorder and depression presents to emergency department with report that he has been noncompliant with his psychiatric medications since discharge back to the [facility]. Patient is supposed to be on Zyprexa, Depakote, Cogentin according to the medical record. However report is that he is not been compliant with these medications for over a week. Patient was inappropriate at the [facility] throwing things around the kitchen and when police came by he walked out of the [facility] and attempted to lay down in front of a moving vehicle. Patient has history of multiple visits for the same and for cutting with multiple lacerations. Patient had a negative head CT on 12/20/16. Patient on questioning will not answer but he follows the examiner. Patient was ambulatory following commands for EMS. - Related Data Allergies/Adverse Reactions: codeine Allergy (Verified 12/19/16 18:21) haloperidol [From Haldol] Allergy (Verified 12/19/16 18:21) lisinopril Allergy (Verified 12/19/16 18:21) Past Medical History - General Information source: Patient - Social History Smoking Status: Former Smoker Frequency of alcohol use: None Drug Abuse: None Lives with: Other - [facility] Family History: Reviewed & Not Pertinent - Past Medical History Cardiac Medical History: Reports: Hx Hypercholesterolemia, Hx Hypertension Renal/ Medical History: Denies: Hx Peritoneal Dialysis Psychiatric Medical History: Reports: Hx Bipolar Disorder, Hx Schizophrenia Review of Systems - Review of Systems -: Yes ROS unobtainable due to patient's medical condition Respiratory: denies: Cough Gastrointestinal: denies: Diarrhea, Vomiting -: Yes All other systems reviewed and negative Physical Exam - Vital signs Vitals: Temp Pulse Resp BP Pulse Ox 98.4 F 96 24 H 183/100 H 97 01/08/17 03:45 01/08/17 03:45 01/08/17 03:45 01/08/17 03:45 01/08/17 03:45 - Notes Notes: PHYSICAL EXAMINATION: GENERAL: Well-appearing, well-nourished. HEAD: Atraumatic, normocephalic. Patient has previous superficial cut wounds to the forehead which are well-healed. EYES: Pupils equal round and reactive to light, extraocular movements intact, sclera anicteric, conjunctiva are normal. ENT: Nares patent, oropharynx clear without exudates. Moist mucous membranes. NECK: Normal range of motion, supple without lymphadenopathy LUNGS: Breath sounds clear to auscultation bilaterally and equal. No wheezes rales or rhonchi. HEART: Regular rate and rhythm without murmurs ABDOMEN: Soft, nontender, nondistended abdomen. No guarding, no rebound. No masses appreciated. Musculoskeletal: Normal range of motion, no pitting or edema. No cyanosis. NEUROLOGICAL: Cranial nerves grossly intact. normal gait. Normal sensory, motor exams PSYCH: Flattened affect. Patient follows some commands and follows examiner. Patient is nonverbal, and occasionally grunts and response. SKIN: Warm, Dry, normal turgor, no rashes or lesions noted. Multiple old lacerations on both forearms left greater than right are noted. No evidence for infection. Course - Re-evaluation Re-evalutation: 01/08/17 04:12 Due to the patient's agitation, he was given Geodon 20 mg, Ativan 2 mg, and Benadryl 50 mg. The patient was more appropriate and cooperative after that. 01/08/17 05:06 Patient required restraints for patient and staff safety. Lab work and urinalysis ordered on the patient. Patient must be cleared for psychiatric evaluation. 01/08/17 05:06 The patient may benefit from a long-acting Prolixin to be administered outpatient. - Vital Signs Vital signs: Temp Pulse Resp BP Pulse Ox 98.4 F 96 24 H 183/100 H 97 01/08/17 03:45 01/08/17 03:45 01/08/17 03:45 01/08/17 03:45 01/08/17 03:45 Discharge - Discharge Clinical Impression: Agitation Schizophrenia Qualifiers: Schizophrenia type: undifferentiated schizophrenia Qualified Code(s): F20.3 - Undifferentiated schizophrenia
[2017-01-08 05:23] LABS: ALANINE AMINOTRANSFERASE 23 U/L (21-72); ALBUMIN 4.3 g/dL (3.5-5.0); ALKALINE PHOSPHATASE 65 U/L (38-126); ANION GAP 16 (5-19); ASPARTATE AMINO TRANSFERASE 27 U/L (17-59); BILIRUBIN,DIRECT 0.3 mg/dL (0.0-0.4); BILIRUBIN,TOTAL 0.5 mg/dL (0.2-1.3); BLOOD UREA NITROGEN 18 mg/dL (7-20); CALCIUM 9.6 mg/dL (8.4-10.2); CARBON DIOXIDE 22 mmol/L (22-30); CHLORIDE 103 mmol/L (98-107); CREATININE RESULT 0.96 mg/dL (0.52-1.25); GLUCOSE 102 mg/dL (75-110); POTASSIUM 4.4 mmol/L (3.6-5.0); SODIUM 141.2 mmol/L (137-145); TOTAL PROTEIN 7.5 g/dL (6.3-8.2)
[2017-01-08 05:26] LABS: ALCOHOL < 10 mg/dL (NONE DETECTED)
[2017-01-08 06:04] LABS: ABSOLUTE BASOPHILS # (AUTO) 0.1 10^3/uL (0.0-0.2); ABSOLUTE EOSINOPHILS # (AUTO) 0.2 10^3/uL (0.0-0.6); ABSOLUTE LYMPHOCYTES (AUTO) 1.9 10^3/uL (0.5-4.7); ABSOLUTE MONOCYTES (AUTO) 0.5 10^3/uL (0.1-1.4); ABSOLUTE NEUT (AUTO) 2.6 10^3/uL (1.7-8.2); BASOPHILS % (AUTO) 1.1 % (0-2); HEMATOCRIT 40.1 % (37.9-51.0); HEMOGLOBIN 13.5 g/dL (13.5-17.0); HGB HCT DIFFERENCE 0.4; LYMPHOCYTES % (AUTO) 36.5 % (13-45); MEAN CORPUSCULAR HEMOGLOBIN 27.8 pg (27.0-33.4); MEAN CORPUSCULAR HGB CONC 33.7 g/dL (32.0-36.0); MEAN CORPUSCULAR VOLUME 83 fl (80-97); MONOCYTES % (AUTO) 8.9 % (3-13); RED BLOOD COUNT 4.87 10^6/uL (4.35-5.55); RED CELL DISTRIBUTION WIDTH 14.4 % (11.5-14.0); SEGMENTED NEUTROPHILS % (AUTO) 50.5 % (42-78); WHITE BLOOD COUNT 5.2 10^3/uL (4.0-10.5)
[2017-01-08 06:52] LABS: APPEARANCE,URINE CLEAR; BILIRUBIN,URINE NEGATIVE (NEGATIVE); GLUCOSE, URINE NEGATIVE (NEGATIVE); KETONES,URINE NEGATIVE (NEGATIVE); LEUKOCYTE ESTERASE,URINE NEGATIVE (NEGATIVE); NITRITE,URINE NEGATIVE (NEGATIVE); PROTEIN,URINE NEGATIVE (NEGATIVE); URINE SPECIFIC GRAVITY 1.011; UROBILINOGEN,URINE NEGATIVE mg/dL (<2.0)
[2017-01-08 07:05] LABS: URINE BARBITURATES SCREEN NEGATIVE; URINE METHADONE SCREEN NEGATIVE; URINE OPIATES LOW NEGATIVE; URINE PHENCYCLIDINE SCREEN NEGATIVE
--- NOTE | 2017-01-08 13:25 | PSYCHOLOGICAL NOTE ---
Psych Note - Psych Note Psych Note: Patient is a 31-year-old with schizophrenia and psychotic disorder, bipolar disorder and depression presents to emergency department with report that he has been noncompliant with his psychiatric medications [facility]. Patient is supposed to be on Zyprexa, Depakote, Cogentin according to the medical record. However report is that he is not been compliant with these medications for over a week. Patient was [facility] the [facility] throwing things around the kitchen and when police came by he walked out of the [facility] and attempted to lay down in front of a moving vehicle. Patient states that he has not been taking his medication and does not want to talk about what happened last night. He confirms he [facility] in a [facility]. Patient states he is not suicidal and homicidal ideation. Patient is alert and orientated to person place time and circumstance. Mood is euthymic with congruent affect. Patient denies suicidal and homicidal ideation. Patient denies auditory and visual hallucinations, it is noted the patient has disclosed auditory hallucination but he is currently not demonstrating responding to internal stimuli. No delusions are noted. Thought process is organized and linear. Eye contact is poor. Intellectual abilities were estimated in the lower average range. Attention and focus were fair. Insight, judgment, impulse control are historical poor. 298.9 (F29) Unspecified schizophrenia and other psychotic disorder, per history 296.80 (F31.9) Unspecified bipolar disorder per history 311 (F32.9) Unspecified depressive disorder per history Diabetes, per history Hypertension, per history Impression/ Plan: Patient is psychiatrically cleared and recommended for discharge. A member from patient's enhanced service, ACTT will present and assist patient with discharging. Patient does not meet criteria for IVC per the [place] general statute 122C; patient denies suicidal and homicidal ideation. Patient denies auditory and visual hallucinations, it is noted the patient has disclosed auditory hallucination but he is currently not demonstrating responding to internal stimuli. I consulted with Dr. Mtz in regards to the care and management of this patient. ED MD is in agreement with disposition and recommendations.
[2017-01-08 16:07] VITALS: BP 146/96
== END 2017-01-08 16:36 | disposition home or self-care (01) ==
LOC: ER 03:33
DX: F20.3 Undifferentiated schizophrenia (principal); R45.1 Restlessness and agitation; F32.9 Major depressive disorder, single episode, unspecified; F31.9 Bipolar disorder, unspecified; Z79.899 Other long term (current) drug therapy; Z87.891 Personal history of nicotine dependence
CPT/HCPCS: 99285; 96372; 36415; 82962; 80307 ×3; 85025; 80053; 81001; J1200; J2060; J3486

== ENCOUNTER 2017-01-30 02:06 | Emergency (ER) | payer MEDICAID, OTHER ==
--- NOTE | 2017-01-30 03:04 | ER Document Report ---
ED General - General Chief Complaint: Dizziness Stated Complaint: WEAKNESS/DIZZINESS Time seen by provider: 03:03 Information source: Patient TRAVEL OUTSIDE OF THE [place] IN LAST 30 DAYS: No - HPI Notes: Patient presents with report that he feels generally weak and somewhat dizzy onset tonight. The patient denies any intentional overdose of his medications, but he comes in with pill planners blister packs of medications that do show some questionable compliance. The patient denies any headache or head injury or neck pain. He reports no tinnitus or hearing change. He denies any neck stiffness. Medications include Zyprexa, Depakote, Cogentin, Seroquel, Prozac and trazodone. Patient has a long-standing psychiatric history and is staying in an assisted living facility. Patient denies any focal numbness or paresthesia. - Related Data Allergies/Adverse Reactions: codeine Allergy (Verified 12/19/16 18:21) haloperidol [From Haldol] Allergy (Verified 12/19/16 18:21) lisinopril Allergy (Verified 12/19/16 18:21) Past Medical History - General Information source: Patient - Social History Smoking Status: Smoker,Current Status Unk Cigarette use (# per day): No Frequency of alcohol use: None Drug Abuse: None Lives with: Shelter Family History: Reviewed & Not Pertinent Patient has suicidal ideation: No Patient has homicidal ideation: No - Past Medical History Cardiac Medical History: Reports: Hx Hypercholesterolemia, Hx Hypertension Renal/ Medical History: Denies: Hx Peritoneal Dialysis Psychiatric Medical History: Reports: Hx Bipolar Disorder, Hx Schizophrenia Review of Systems - Review of Systems Notes: REVIEW OF SYSTEMS: CONSTITUTIONAL : Denies fever, chills, or sweats. Denies recent illness. EENT: Denies eye, ear, throat, or mouth pain or symptoms. Denies nasal or sinus congestion or discharge. Denies throat, tongue, or mouth swelling or difficulty swallowing. CARDIOVASCULAR: Denies chest pain. Denies palpitations or racing or irregular heart beat. Denies ankle edema. RESPIRATORY: Denies cough, cold, or chest congestion. Denies shortness of breath, difficulty breathing, or wheezing. GASTROINTESTINAL: Denies abdominal pain or distention. Denies nausea, vomiting , or diarrhea. Denies blood in vomitus, stools, or per rectum. Denies black, tarry stools. Denies constipation. GENITOURINARY: Denies difficulty urinating, painful urination, burning, frequency, blood in urine, or discharge. MUSCULOSKELETAL: Denies back or neck pain or stiffness. Denies joint pain or swelling. SKIN: Denies rash, lesions or sores. HEMATOLOGIC : Denies easy bruising or bleeding. LYMPHATIC: Denies swollen, enlarged glands. NEUROLOGICAL: Denies confusion or altered mental status. Denies passing out or loss of consciousness. Denies headache. Denies weakness or paralysis or loss of use of either side. Denies problems with gait or speech. Denies sensory loss, numbness, or tingling. Denies seizures. PSYCHIATRIC: Denies anxiety or stress. Denies depression, suicidal ideation, or homicidal ideation. ALL OTHER SYSTEMS REVIEWED AND NEGATIVE. Dictation was performed using [employer] voice recognition software Physical Exam - Vital signs Vitals: Temp Pulse Resp BP Pulse Ox 98.4 F 116 H 18 148/94 H 97 01/30/17 02:24 01/30/17 02:24 01/30/17 02:24 01/30/17 02:24 01/30/17 02:24 - Notes Notes: PHYSICAL EXAMINATION: GENERAL: Well-appearing, well-nourished and in no acute distress. HEAD: Atraumatic, normocephalic. EYES: Pupils equal round and reactive to light, extraocular movements intact, sclera anicteric, conjunctiva are normal. ENT: Nares patent, oropharynx clear without exudates. Moist mucous membranes. Tympanic membranes clear. NECK: Normal range of motion, supple without lymphadenopathy LUNGS: Breath sounds clear to auscultation bilaterally and equal. No wheezes rales or rhonchi. HEART: Regular rate and rhythm without murmurs ABDOMEN: Soft, nontender, nondistended abdomen. No guarding, no rebound. No masses appreciated. Musculoskeletal: Normal range of motion, no pitting or edema. No cyanosis. NEUROLOGICAL: Cranial nerves grossly intact. Normal sensory, motor exams. Patient is somewhat somnolent but arousable. Minimal ataxia noted. PSYCH: Normal mood, normal affect. SKIN: Warm, Dry, normal turgor, no rashes or lesions noted. Course - Re-evaluation Re-evalutation: 01/30/17 06:35 Vital signs remained stable and the patient improved. I have concerned that the patient is not capable of taking his own medications on a regular scheduled interval. It would be best if he has assistance in this. This is been passed on to the assisted living facility staff. Urine specimen is pending. If negative for other abnormality, the patient will go home with instructions to follow-up with his regular practitioner. - Vital Signs Vital signs: Temp Pulse Resp BP Pulse Ox 98.4 F 107 H 12 120/78 99 01/30/17 02:24 01/30/17 06:00 01/30/17 05:57 01/30/17 06:00 01/30/17 05:57 - Laboratory Result Diagrams: 01/30/17 03:40 01/30/17 03:40 Laboratory results interpreted by me: 01/30/17 03:40 RDW 14.1 H - EKG Interpretation by Me EKG shows normal: Sinus rhythm Rate: Normal Additional EKG results interpreted by me: 01/30/17 03:31 EKG is interpreted by me showed sinus tachycardia heart rate of 100 with no gross evidence for acute DE or ischemia noted. There is a left anterior fascicular block. There is no change from previous EKG reviewed from 12/31/16. The assisted tool room supervisor also agreed with me that the patient needs close monitoring with taking his medications regularly for assured compliance. Discharge - Discharge Clinical Impression: Dizziness and giddiness Condition: Stable Disposition: HOME, SELF-CARE Additional Instructions: Drink plenty of fluids. Stand slowly. It is recommended that you have supervision and assistance with taking your medications on a daily basis. Referrals: SEAN BOYER MD [Primary Care Provider] - Follow up as needed
[2017-01-30 03:57] LABS: ABSOLUTE BASOPHILS # (AUTO) 0.1 10^3/uL (0.0-0.2); ABSOLUTE EOSINOPHILS # (AUTO) 0.1 10^3/uL (0.0-0.6); ABSOLUTE LYMPHOCYTES (AUTO) 2.5 10^3/uL (0.5-4.7); ABSOLUTE MONOCYTES (AUTO) 0.7 10^3/uL (0.1-1.4); EOSINOPHILS % (AUTO) 2.1 % (0-6); HEMOGLOBIN 14.1 g/dL (13.5-17.0); HGB HCT DIFFERENCE 1.3; LYMPHOCYTES % (AUTO) 39.2 % (13-45); MEAN CORPUSCULAR HGB CONC 34.4 g/dL (32.0-36.0); MEAN CORPUSCULAR VOLUME 81 fl (80-97); MONOCYTES % (AUTO) 10.8 % (3-13); RED BLOOD COUNT 5.04 10^6/uL (4.35-5.55); RED CELL DISTRIBUTION WIDTH 14.1 % (11.5-14.0); SEGMENTED NEUTROPHILS % (AUTO) 46.9 % (42-78); WHITE BLOOD COUNT 6.4 10^3/uL (4.0-10.5)
[2017-01-30 04:13] LABS: ALANINE AMINOTRANSFERASE 24 U/L (21-72); ALBUMIN 3.8 g/dL (3.5-5.0); ALCOHOL < 10 mg/dL (NONE DETECTED); ALKALINE PHOSPHATASE 64 U/L (38-126); ANION GAP 12 (5-19); ASPARTATE AMINO TRANSFERASE 38 U/L (17-59); BILIRUBIN,DIRECT 0.3 mg/dL (0.0-0.4); BILIRUBIN,TOTAL 0.3 mg/dL (0.2-1.3); BLOOD UREA NITROGEN 12 mg/dL (7-20); CALCIUM 9.1 mg/dL (8.4-10.2); CARBON DIOXIDE 27 mmol/L (22-30); CHLORIDE 103 mmol/L (98-107); CREATININE RESULT 0.83 mg/dL (0.52-1.25); GLUCOSE 101 mg/dL (75-110); MAGNESIUM 1.7 mg/dL (1.6-2.3); SODIUM 141.5 mmol/L (137-145); TOTAL PROTEIN 7.2 g/dL (6.3-8.2)
--- NOTE | 2017-01-30 08:24 | EKG REPORT ---
SEVERITY:- ABNORMAL ECG - SINUS TACHYCARDIA LEFT ANTERIOR FASCICULAR BLOCK : Confirmed by: Shemar Hansen MD 30-Jan-2017 08:23:29
[2017-01-30 10:20] VITALS: BP 154/98
== END 2017-01-30 10:20 | disposition home or self-care (01) ==
LOC: ER 02:06
DX: R42 Dizziness and giddiness (principal); R53.1 Weakness; F17.200 Nicotine dependence, unspecified, uncomplicated
CPT/HCPCS: 36415; 80053; 80164; 80307; 83735; 85025; 93005; 93010; 99284

== ENCOUNTER 2017-02-25 01:45 | Emergency (ER) | payer OTHER, MEDICAID ==
[2017-02-25] MEDS ORDERED: OLANZAPINE INJ/PF 10 MG SDV IM ONE (02:04)
[2017-02-25] MEDS ORDERED: DIPHENHYDRAMINE HCL 50 MG/ML VIAL IM ONE (02:04)
[2017-02-25] MEDS ORDERED: LORAZEPAM INJ 2 MG/1 ML VIAL IM ONE (02:04)
--- NOTE | 2017-02-25 02:09 | ER Document Report ---
ED Psych Disorder / Suicide - General Chief Complaint: Psych Problem Stated Complaint: IVC W/PAPERS Time Seen by Provider: 02/25/17 01:59 Information source: Law Enforcement TRAVEL OUTSIDE OF THE [place] IN LAST 30 DAYS: No - HPI Patient complains to provider of: Aggression, Agitated, Bizarre behavior, Hallucinating Onset was: Cannot confirm Suicide Risk Factors: Hallucinations, Male Similar symptoms previously: Yes Notes: Patient is a 31-year-old male with known mental illness, who was brought to the emergency room by law enforcement on IVC paperwork which was completed by ZALORA, stating that patient "Plans to kill himself before demons take his soul. Plans to jump in front of the vehicle and hang himself from a tree. Reports being chased by a demon." At time of my initial evaluation patient is rocking on the bed, holding a white inna bear and a black gorilla, when I asked him a question he consults with the stuffed animals for an answer, he is unsure whether he has been taking his medications or not, otherwise he does not answer most of my questions but just stares at me, so patient prefers to be referred to as Nelson today - Related Data Allergies/Adverse Reactions: codeine Allergy (Verified 12/19/16 18:21) haloperidol [From Haldol] Allergy (Verified 12/19/16 18:21) lisinopril Allergy (Verified 12/19/16 18:21) Home Medications: Current Home Medications Benztropine Mesylate [Cogentin 1 mg Tablet] 1 mg PO BID 02/25/17 [History] Ergocalciferol (Vitamin D2) [Vitamin D] 1,000 units PO QAM 02/25/17 [History] Fluoxetine HCl [Fluoxetine HCl] 20 mg PO QAM 02/25/17 [History] Prazosin HCl [Minipress] 5 mg PO QHS 02/25/17 [History] Quetiapine Fumarate [Quetiapine Fumarate] 600 mg PO QHS 02/25/17 [History] Trazodone HCl 100 mg PO QHS 02/25/17 [History] Past Medical History - General Information source: Patient - Social History Smoking Status: Unknown if Ever Smoked Family History: Reviewed & Not Pertinent Patient has suicidal ideation: No Patient has homicidal ideation: No - Past Medical History Cardiac Medical History: Reports: Hx Hypercholesterolemia, Hx Hypertension Renal/ Medical History: Denies: Hx Peritoneal Dialysis Psychiatric Medical History: Reports: Hx Bipolar Disorder, Hx Schizophrenia Review of Systems - Review of Systems Constitutional: No symptoms reported EENT: No symptoms reported Cardiovascular: No symptoms reported Respiratory: No symptoms reported Gastrointestinal: No symptoms reported Genitourinary: No symptoms reported Male Genitourinary: No symptoms reported Musculoskeletal: No symptoms reported Skin: No symptoms reported Hematologic/Lymphatic: No symptoms reported Neurological/Psychological: See HPI -: Yes All other systems reviewed and negative Physical Exam - Vital signs Vitals: Temp Pulse Resp BP Pulse Ox 98.5 F 120 H 16 146/108 H 96 02/25/17 01:51 02/25/17 01:51 02/25/17 01:51 02/25/17 01:51 02/25/17 01:51 Interpretation: Tachycardic - General General appearance: Alert In distress: None - HEENT Head: Normocephalic, Atraumatic, Other - Multiple scars to forehead from previous self injury Conjunctiva: Normal Extraocular movements intact: Yes Eyelashes: Normal - Respiratory Respiratory status: No respiratory distress - Cardiovascular Rhythm: Regular - Abdominal Inspection: Normal - Back Back: Normal - Extremities General upper extremity: Normal inspection, Other - Multiple scars to bilateral upper extremities from previous self injury General lower extremity: Normal inspection - Psychological Associated symptoms: Agitated, Psychomotor agitation, Other - Patient is rocking back and forth on stretcher, appears agitated, holding two stuffed animals in his arms, poor eye contact - Skin Skin Temperature: Warm Skin Moisture: Dry Skin Color: Normal Course - Vital Signs Vital signs: Temp Pulse Resp BP Pulse Ox 98.5 F 120 H 16 146/108 H 96 02/25/17 01:51 02/25/17 01:51 02/25/17 01:51 02/25/17 01:51 02/25/17 01:51 - Laboratory Result Diagrams: 02/25/17 02:27 02/25/17 02:27 Laboratory results interpreted by me: 02/25/17 02:27 Glucose 114 H Salicylates < 1.0 L Acetaminophen < 10 L Valproic Acid 46.2 L - EKG Interpretation by Il EKG shows normal: Sinus rhythm Rate: Tachycardia Discharge - Discharge Clinical Impression: Suicidal ideation, Hallucinations Condition: Stable Disposition: PSYCH HOSP/UNIT
[2017-02-25 02:42] LABS: ABSOLUTE BASOPHILS # (AUTO) 0.1 10^3/uL (0.0-0.2); ABSOLUTE EOSINOPHILS # (AUTO) 0.1 10^3/uL (0.0-0.6); ABSOLUTE LYMPHOCYTES (AUTO) 1.9 10^3/uL (0.5-4.7); ABSOLUTE MONOCYTES (AUTO) 0.7 10^3/uL (0.1-1.4); ABSOLUTE NEUT (AUTO) 6.9 10^3/uL (1.7-8.2); BASOPHILS % (AUTO) 0.7 % (0-2); EOSINOPHILS % (AUTO) 0.7 % (0-6); HEMATOCRIT 44.7 % (37.9-51.0); HEMOGLOBIN 14.6 g/dL (13.5-17.0); HGB HCT DIFFERENCE -0.9; LYMPHOCYTES % (AUTO) 19.9 % (13-45); MEAN CORPUSCULAR HGB CONC 32.6 g/dL (32.0-36.0); MEAN CORPUSCULAR VOLUME 83 fl (80-97); MONOCYTES % (AUTO) 7.4 % (3-13); RED BLOOD COUNT 5.39 10^6/uL (4.35-5.55); RED CELL DISTRIBUTION WIDTH 13.1 % (11.5-14.0); SEGMENTED NEUTROPHILS % (AUTO) 71.3 % (42-78); WHITE BLOOD COUNT 9.7 10^3/uL (4.0-10.5)
[2017-02-25 03:07] LABS: ALANINE AMINOTRANSFERASE 28 U/L (21-72); ALBUMIN 4.4 g/dL (3.5-5.0); ALKALINE PHOSPHATASE 74 U/L (38-126); ANION GAP 14 (5-19); ASPARTATE AMINO TRANSFERASE 33 U/L (17-59); BILIRUBIN,DIRECT 0.3 mg/dL (0.0-0.4); BILIRUBIN,TOTAL 0.4 mg/dL (0.2-1.3); BLOOD UREA NITROGEN 9 mg/dL (7-20); CALCIUM 9.8 mg/dL (8.4-10.2); CARBON DIOXIDE 24 mmol/L (22-30); CHLORIDE 102 mmol/L (98-107); CREATININE RESULT 0.93 mg/dL (0.52-1.25); GLUCOSE 114 mg/dL (75-110); POTASSIUM 4.2 mmol/L (3.6-5.0); SODIUM 139.6 mmol/L (137-145)
[2017-02-25 03:08] LABS: TOTAL PROTEIN 7.9 g/dL (6.3-8.2)
[2017-02-25 03:13] LABS: VALPROIC ACID 46.2 ug/mL (50.0-120.0)
[2017-02-25 03:18] LABS: ALCOHOL < 10 mg/dL (NONE DETECTED)
[2017-02-25] MEDS ORDERED: ERGOCALCIFEROL 1000 UNIT PO SCH (08:00)
[2017-02-25] MEDS ORDERED: FLUOXETINE HCL 20 MG CAPSULE PO SCH (10:00)
[2017-02-25] MEDS ORDERED: DIVALPROEX SODIUM 500 MG TAB.SR.24H PO SCH ×2 (10:00)
--- NOTE | 2017-02-25 10:01 | EKG REPORT ---
SEVERITY:- ABNORMAL ECG - SINUS TACHYCARDIA LEFT ANTERIOR FASCICULAR BLOCK : Confirmed by: Michelle Bolivar 25-Feb-2017 10:00:43
[2017-02-25] MEDS: BENZTROPINE MESYLATE 1 MG TABLET PO SCH ×2 (10:35→17:41)
--- NOTE | 2017-02-25 17:18 | ER Document Report ---
ED Psych Disorder / Suicide - General Chief Complaint: Psych Problem Stated Complaint: IVC W/PAPERS Time Seen by Provider: 02/25/17 01:59 Information source: Patient, H Records, Outside Facility Records - [facility] TRAVEL OUTSIDE OF THE [place] IN LAST 30 DAYS: No - HPI Patient complains to provider of: Bizarre behavior, Suicidal ideation Onset: Other Onset was: Cannot confirm Suicide Risk Factors: Depressed, Lack of social support, Schizophrenia Normal mood: Yes Associated symptoms: Normal affect, Normal mood Similar symptoms previously: Yes Recently seen / treated by doctor: Yes Notes: Patient is a 31 year old male who presented overnight with suicidal ideations due to "demons." Patient is known to this clinician as well as this Department for numerous prior episodes. Patient is noted to reside in a half-way setting , as well as receive ACTT services via A. Patient this morning states there are demons chasing him. Patient confirms he still resides in the half-way and received enhanced services. Patient was observed sitting on his bed throughout the day, rocking. Should be noted, this is common for this patient within this setting. He denies wanting to harm himself or anyone else. A ACTT Ash Zimmerman states: a hourly team members will present. Around 1700 bridge crew member Vince presented and states to his knowledge, the patient had an outburst within the home last night. He states there were no threats to himself or anyone else. Mr. Clarke states the patient got upset and had an outburst and threw a chair. He met individually with the patient for conversation and states he "feels confident" taking him home. He did note that the patient states his name was not Zachary and presented as though he did not recognize him. Discussed with Mr. Clarke the likelihood of this being an behavioral presentation for unknown gain. Patient is A&O. Mood is guarded with normal affect. Patient denies suicidal/ homicidal ideaitons, intent, plan, or means. Patient denies A/V H; delusions were not noted. Thought processes were guarded. Conversational speech was WNL for this patient. Intellectual abilities were estimated within low range. Attention and focus were fair. Insight, judgment, and impulse control were poor. 298.9 (F29) Unspecified schizophrenia and other psychotic disorder, per history 296.80 (F31.9) Unspecified bipolar disorder per history 311 (F32.9) Unspecified depressive disorder per history Diabetes, per history Hypertension, per history Patient is psychiatrically cleared for discharge to his ACTT Provider. Patient' s presentation is congruent with previous episodes and is considered to be his baseline functioning. Patient's ACT bridge crew member is here and has met with the patient and states he is "confident" taking the patient home. Patient throughout the episode has been calm and cooperative. Note, historically, patient engages in self injurious cutting; however, this was not evident this episode.I consulted with Dr. Mtz in regards to the care and management of this patient. - Related Data Allergies/Adverse Reactions: codeine Allergy (Verified 12/19/16 18:21) haloperidol [From Haldol] Allergy (Verified 12/19/16 18:21) lisinopril Allergy (Verified 12/19/16 18:21) Home Medications: Current Home Medications Benztropine Mesylate [Cogentin 1 mg Tablet] 1 mg PO BID 02/25/17 [History] Cholecalciferol (Vitamin D3) [Vitamin D3] 1,000 unit PO QAM 02/25/17 [History] Fluoxetine HCl [Fluoxetine HCl] 20 mg PO QAM 02/25/17 [History] Prazosin HCl [Minipress] 5 mg PO QHS 02/25/17 [History] Quetiapine Fumarate [Quetiapine Fumarate] 600 mg PO QHS 02/25/17 [History] Trazodone HCl 100 mg PO QHS 02/25/17 [History] Past Medical History - General Information source: Patient, [facility] Records, Outside Facility Records - Social History Smoking Status: Unknown if Ever Smoked Family History: Reviewed & Not Pertinent Patient has suicidal ideation: No Patient has homicidal ideation: No - Past Medical History Cardiac Medical History: Reports: Hx Hypercholesterolemia, Hx Hypertension Renal/ Medical History: Denies: Hx Peritoneal Dialysis Psychiatric Medical History: Reports: Hx Bipolar Disorder, Hx Schizophrenia Physical Exam - Vital signs Vitals: Temp Pulse Resp BP Pulse Ox 98.5 F 120 H 16 146/108 H 96 02/25/17 01:51 02/25/17 01:51 02/25/17 01:51 02/25/17 01:51 02/25/17 01:51 Course - Vital Signs Vital signs: Temp Pulse Resp BP Pulse Ox 98.0 F 78 14 120/76 96 02/25/17 07:34 02/25/17 07:34 02/25/17 07:34 02/25/17 07:34 02/25/17 07:34 - Laboratory Result Diagrams: 02/25/17 02:27 02/25/17 02:27 Laboratory results interpreted by me: 02/25/17 02:27 Glucose 114 H Salicylates < 1.0 L Acetaminophen < 10 L Valproic Acid 46.2 L Discharge - Discharge Clinical Impression: Suicidal ideation, Hallucination Condition: Stable Disposition: HOME, SELF-CARE Additional Instructions: Schizophrenia Schizophrenia is a chemical disorder that affects how the brain functions. The exact cause is unknown, but it tends to run in families. It is NOT caused by emotional trauma. Schizophrenia causes disordered thinking, including unusual beliefs and inability to "process" happenings around the patient. Patients with schizophrenia benefit greatly from medicine. These medicines are called antipsychotics. Never stop the medicine without the doctor 's approval. Counselling may help the patient deal with his disease. Schizophrenics require a very ordered environment. Stresses and sudden changes may bring out symptoms. Drugs and alcohol abuse may become problems. Contact the counsellor or crisis line if there are thoughts of suicide or of harming others, or if you become aware of unusual thoughts or beliefs Please continue to engage with your ACTT provider. Please work to identify coping skills to assist in managing your frustration and reactions. Please continue to take all your medications as prescribed. Please return if your symptoms worsen. Referrals: SEAN BOYER MD [Primary Care Provider] - Follow up as needed [facility] [Provider Group] - Follow up as needed
[2017-02-25 17:42] VITALS: BP 140/77
[2017-02-25] MEDS ORDERED: (PENDING PHARMACY ID) (Prazosin Hcl [Minipress] 5 MG) PO SCH (22:00)
[2017-02-25] MEDS ORDERED: TRAZODONE HCL 50 MG TABLET PO SCH (22:00)
[2017-02-25] MEDS ORDERED: QUETIAPINE FUMARATE 100 MG TABLET PO SCH (22:00)
== END 2017-02-25 17:42 | disposition home or self-care (01) ==
LOC: ER 01:45
DX: R45.851 Suicidal ideations (principal); R44.3 Hallucinations, unspecified; F31.9 Bipolar disorder, unspecified; E78.00 Pure hypercholesterolemia, unspecified; I10 Essential (primary) hypertension; Z88.6 Allergy status to analgesic agent
CPT/HCPCS: 93005; 99284; 96372; 36415; 80307 ×3; 85025; 80053; 80164; 93010; J3490 ×3; J1200; J2060; 81001; 99285; J3230; J3486

== ENCOUNTER 2017-02-25 21:43 | Emergency (ER) | payer MEDICAID ==
[2017-02-25] MEDS ORDERED: OLANZAPINE 5 MG TAB.RAPDIS PO ONE (22:26)
[2017-02-25] MEDS ORDERED: LORAZEPAM 1 MG TABLET PO ONE (22:26)
--- NOTE | 2017-02-25 22:26 | ER Document Report ---
ED General - General Chief Complaint: Psych Problem Stated Complaint: SUICIDIAL IDEATION Time Seen by Provider: 02/25/17 22:03 Mode of Arrival: Carried Information source: Patient, Law Enforcement TRAVEL OUTSIDE OF THE [place] IN LAST 30 DAYS: No - HPI Notes: Patient is a 31-year-old black male history of schizophrenia and bipolar disorder comes from local [facility] with report of suicidal and homicidal ideation by staff and police. Apparently the patient was attempting to move furniture around inside the [facility] when he broke a window and the police were called which came and found the patient sitting out on the porch and the patient was walking away from the police and initially was cooperative, but when a car came approaching he immediately splinted to run directly into its path. the police restrained patient and brought him in. Patient was seen yesterday with Involuntary commitment papers. The patient has been reporting his voice Mason has been telling him to hurt other people. The patient denies hurting anywhere and denies any other ingestion. Call was being made to the [facility] to confirm that the patient has been taking his medications since discharge From the emergency department this morning. The staff at the [facility] stated that they had no responsibility with giving him his medications, and they stated he was not welcome to come back to the [facility] due to the destruction of property and his unstable mental state. - Related Data Allergies/Adverse Reactions: codeine Allergy (Verified 12/19/16 18:21) haloperidol [From Haldol] Allergy (Verified 12/19/16 18:21) lisinopril Allergy (Verified 12/19/16 18:21) Past Medical History - General Information source: Patient, [facility] Records, Outside Facility Records - Social History Smoking Status: Never Smoker Frequency of alcohol use: None Drug Abuse: None Lives with: Other - senior living Family History: Reviewed & Not Pertinent Patient has suicidal ideation: Yes Patient has homicidal ideation: Yes - Past Medical History Cardiac Medical History: Reports: Hx Hypercholesterolemia, Hx Hypertension Renal/ Medical History: Denies: Hx Peritoneal Dialysis Psychiatric Medical History: Reports: Hx Bipolar Disorder, Hx Schizophrenia Review of Systems - Review of Systems Notes: REVIEW OF SYSTEMS: CONSTITUTIONAL : Denies fever, chills, or sweats. Denies recent illness. EENT: Denies eye, ear, throat, or mouth pain or symptoms. Denies nasal or sinus congestion or discharge. Denies throat, tongue, or mouth swelling or difficulty swallowing. CARDIOVASCULAR: Denies chest pain. Denies palpitations or racing or irregular heart beat. Denies ankle edema. RESPIRATORY: Denies cough, cold, or chest congestion. Denies shortness of breath, difficulty breathing, or wheezing. GASTROINTESTINAL: Denies abdominal pain or distention. Denies nausea, vomiting , or diarrhea. Denies blood in vomitus, stools, or per rectum. Denies black, tarry stools. Denies constipation. GENITOURINARY: Denies difficulty urinating, painful urination, burning, frequency, blood in urine, or discharge. MUSCULOSKELETAL: Denies back or neck pain or stiffness. Denies joint pain or swelling. SKIN: Denies rash, lesions or sores. HEMATOLOGIC : Denies easy bruising or bleeding. LYMPHATIC: Denies swollen, enlarged glands. NEUROLOGICAL: Denies confusion or altered mental status. Denies passing out or loss of consciousness. Denies dizziness or lightheadedness. Denies headache. Denies weakness or paralysis or loss of use of either side. Denies problems with gait or speech. Denies sensory loss, numbness, or tingling. Denies seizures. PSYCHIATRIC: Patient by report has had suicidal ideation attempting to run into a car prior to arrival. There is report of homicidal ideation from residential staff. ALL OTHER SYSTEMS REVIEWED AND NEGATIVE. Dictation was performed using [employer] voice recognition software -: Yes All other systems reviewed and negative Physical Exam - Vital signs Vitals: Temp Pulse Resp BP Pulse Ox 98 F 116 H 20 149/95 H 94 02/25/17 23:00 02/25/17 23:00 02/25/17 23:00 02/25/17 23:00 02/25/17 23:00 - Notes Notes: PHYSICAL EXAMINATION: GENERAL: Well-appearing, well-nourished and in no acute distress. Patient repetitively rocking back and forth in the chair. HEAD: Atraumatic, normocephalic. Old scars on the forehead. EYES: Pupils equal round and reactive to light, extraocular movements intact, sclera anicteric, conjunctiva are normal. ENT: Nares patent, oropharynx clear without exudates. Moist mucous membranes. NECK: Normal range of motion, supple without lymphadenopathy LUNGS: Breath sounds clear to auscultation bilaterally and equal. No wheezes rales or rhonchi. HEART: Regular rate and rhythm without murmurs ABDOMEN: Soft, nontender, nondistended abdomen. No guarding, no rebound. No masses appreciated. Musculoskeletal: Normal range of motion, no pitting or edema. No cyanosis. NEUROLOGICAL: Cranial nerves grossly intact. Normal speech, normal gait. Normal sensory, motor exams PSYCH: Flat affect. Oriented voice. Patient rocking back and forth occasionally mumbling to himself. On questioning, patient denies suicidal or homicidal ideation, but does not answer question as to whether or not he had tried to hurt himself earlier this evening. He does acknowledge hearing voices. There is a report that these voices were telling him to hurt himself earlier, but he will not answer question if they are telling him to hurt himself now. SKIN: Warm, Dry, normal turgor, no rashes or lesions noted. Multiple old scars noted on both arms. No new lesions noted. Course - Re-evaluation Re-evalutation: 02/25/17 22:33 Old records were reviewed on the patient. Patient given a dose of Ativan and Zyprexa and Benadryl. 02/25/17 22:33 Discussion was undertaken with the [facility] staff, and they again stated that the patient was not able to return to that location. The patient may need an additional Ativan 2 mg IM and [facility] assisted living placement where he has somebody to administer his medications to him in a consistent fashion. Patient will be medically cleared and available for psychiatric evaluation and social work evaluation in the morning. 02/25/17 22:56 Patient apparently had to stop to animals but had put a razor blade inside 1 of the stuffed animals and proceeded to cut his arms and forehead again before he was stopped by security and police. Patient is conversant and still seems somewhat cooperative, having taken his p.o. medications previously. 20 mg IM order is made. Patient will need restraints for safety and his stuffed animals are taken away from him. 02/26/17 00:28 Patient given additional 2 mg of IM Ativan with some improvement. Patient is medically cleared for psychiatric evaluation. Again, patient may need assisted living placement, as [facility] without any guidance has been unsuccessful. 02/26/17 04:26 - Vital Signs Vital signs: Temp Pulse Resp BP Pulse Ox 98 F 116 H 20 149/95 H 94 02/25/17 23:00 02/25/17 23:00 02/25/17 23:00 02/25/17 23:00 02/25/17 23:00 - Laboratory Result Diagrams: 02/25/17 23:31 02/25/17 23:31 Laboratory results interpreted by me: 02/25/17 23:31 Glucose 113 H Valproic Acid 36.6 L Discharge - Discharge Clinical Impression: Homicidal ideation, Non compliance with medical treatment Schizophrenia Qualifiers: Schizophrenia type: unspecified Qualified Code(s): F20.9 - Schizophrenia, unspecified Suicidal behavior Qualifiers: Attempted self-injury: with attempted self-injury Qualified Code(s): T14.91 - Suicide attempt Referrals: SEAN BOYER MD [Primary Care Provider] - Follow up as needed
[2017-02-25] MEDS ORDERED: DIPHENHYDRAMINE HCL 50 MG CAPSULE PO ONE (22:33)
[2017-02-25 23:39] LABS: ABSOLUTE BASOPHILS # (AUTO) 0.1 10^3/uL (0.0-0.2); ABSOLUTE EOSINOPHILS # (AUTO) 0.1 10^3/uL (0.0-0.6); ABSOLUTE LYMPHOCYTES (AUTO) 2.2 10^3/uL (0.5-4.7); ABSOLUTE MONOCYTES (AUTO) 0.5 10^3/uL (0.1-1.4); ABSOLUTE NEUT (AUTO) 4.6 10^3/uL (1.7-8.2); BASOPHILS % (AUTO) 0.9 % (0-2); HEMOGLOBIN 15.1 g/dL (13.5-17.0); HGB HCT DIFFERENCE 0.3; LYMPHOCYTES % (AUTO) 29.6 % (13-45); MEAN CORPUSCULAR HEMOGLOBIN 27.3 pg (27.0-33.4); MEAN CORPUSCULAR HGB CONC 33.6 g/dL (32.0-36.0); MEAN CORPUSCULAR VOLUME 81 fl (80-97); MONOCYTES % (AUTO) 6.9 % (3-13); RED BLOOD COUNT 5.53 10^6/uL (4.35-5.55); RED CELL DISTRIBUTION WIDTH 13.2 % (11.5-14.0); SEGMENTED NEUTROPHILS % (AUTO) 61.6 % (42-78); WHITE BLOOD COUNT 7.5 10^3/uL (4.0-10.5)
[2017-02-25 23:54] LABS: ALANINE AMINOTRANSFERASE 32 U/L (21-72); ALBUMIN 4.5 g/dL (3.5-5.0); ALKALINE PHOSPHATASE 66 U/L (38-126); ANION GAP 15 (5-19); ASPARTATE AMINO TRANSFERASE 43 U/L (17-59); BILIRUBIN,DIRECT 0.2 mg/dL (0.0-0.4); BILIRUBIN,TOTAL 0.5 mg/dL (0.2-1.3); BLOOD UREA NITROGEN 12 mg/dL (7-20); CALCIUM 10.1 mg/dL (8.4-10.2); CARBON DIOXIDE 25 mmol/L (22-30); CHLORIDE 100 mmol/L (98-107); CREATININE RESULT 1.01 mg/dL (0.52-1.25); GLUCOSE 113 mg/dL (75-110); POTASSIUM 4.1 mmol/L (3.6-5.0); SODIUM 139.5 mmol/L (137-145); TOTAL PROTEIN 8.2 g/dL (6.3-8.2)
[2017-02-26] LABS: VALPROIC ACID 36.6 ug/mL (50.0-120.0)
[2017-02-26 00:02] LABS: ALCOHOL < 10 mg/dL (NONE DETECTED)
[2017-02-26] MEDS ORDERED: LORAZEPAM INJ 2 MG/1 ML VIAL IM ONE ×2 (00:27→01:59)
[2017-02-26] MEDS ORDERED: ZIPRASIDONE MESYLATE INJ/PF 20 MG SDV IM ONE (00:27)
[2017-02-26 00:52] LABS: APPEARANCE,URINE CLEAR; BILIRUBIN,URINE NEGATIVE (NEGATIVE); GLUCOSE, URINE NEGATIVE (NEGATIVE); KETONES,URINE NEGATIVE (NEGATIVE); LEUKOCYTE ESTERASE,URINE NEGATIVE (NEGATIVE); NITRITE,URINE NEGATIVE (NEGATIVE); PROTEIN,URINE NEGATIVE (NEGATIVE); URINE SPECIFIC GRAVITY 1.025; UROBILINOGEN,URINE NEGATIVE mg/dL (<2.0)
[2017-02-26 01:05] LABS: URINE BARBITURATES SCREEN NEGATIVE; URINE METHADONE SCREEN NEGATIVE; URINE OPIATES LOW NEGATIVE; URINE PHENCYCLIDINE SCREEN NEGATIVE
--- NOTE | 2017-02-26 10:33 | ER Document Report ---
Doctor's Note Notes: 02/26/17 10:31 As the rounding physician for our psychiatric patients, I have reviewed the chart, vitals, lab work. Patient has been examined and noted to be stable at this time . He is somewhat sleepy, and denies thoughts of self harm at this time. It is noted on chart review that renatoeint had razor blade hidden in stuffed animal last night, and this has been taken away and he was placed in restraints for his safety. I am awaiting mental health in [facility] regarding placement 02/26/17 10:32
[2017-02-26] MEDS ORDERED: CLONIDINE HCL 0.1 MG TABLET PO ONE (19:34)
[2017-02-26] MEDS ORDERED: OLANZAPINE 5 MG TABLET PO ONE (19:36)
[2017-02-26] MEDS ORDERED: OLANZAPINE INJ/PF 10 MG SDV IM ONE (20:20)
--- NOTE | 2017-02-26 21:14 | ER Document Report ---
Doctor's Note Notes: 02/26/17 21:09 Notified by nursing staff that patient had episode of increased agitation, yelling and hitting the reddy. Unable to verbally redirect him. Due to the fact that he has persistently threatened self harm and was increasingly aggressive and agitated, he was given IM Zyprexa and placed back in restraints for his own safety and the safety of staff. At this time, eli is resting comfortably. He will open his eyes and answer my questions when spoken to, stating that he wants his stuffed animals back. Will continue to monitor and continue to await placement per mental health team.
--- NOTE | 2017-02-27 00:43 | ER Document Report ---
Doctor's Note Notes: 02/27/17 00:43 Patient continues to be an elopement risk and possible harm to himself and staff. Patient will remain in restraints
[2017-02-27] MEDS ORDERED: CLONIDINE HCL 0.1 MG TABLET PO ONE (01:07)
[2017-02-27] MEDS: FLUOXETINE HCL 20 MG CAPSULE PO SCH (08:22)
[2017-02-27] MEDS: OLANZAPINE 5 MG TABLET PO SCH ×2 (09:28→17:39)
[2017-02-27] MEDS: DIVALPROEX SODIUM 500 MG TAB.SR.24H PO SCH ×2 (09:28→17:39)
[2017-02-27] MEDS: BENZTROPINE MESYLATE 1 MG TABLET PO SCH (09:28)
[2017-02-27] MEDS ORDERED: CHLORPROMAZINE HCL INJ 25 MG/1 ML AMPULE IM ONE (09:47)
--- NOTE | 2017-02-27 12:46 | ER Document Report ---
Doctor's Note Notes: 02/27/17 12:45 Rounds: Chart reviewed and patient interview. History of schizophrenia and bipolar disorder with agitated behavior. Patient has had several outbursts of anger and agitation here in the emergency department. He had to be restrained. Has been given Thorazine 50 mg IM. Seems to be somewhat calm her at this time. Lab studies are all normal. Vital signs were essentially normal although he did have 1 set of heart rate recorded at 113, but is now less than 100. Patient appears to be medically stable for transfer or discharge. Bhanu Ariza MD
--- NOTE | 2017-02-27 17:56 | PSYCHOLOGICAL NOTE ---
Psych Note - Psych Note Psych Note: Patient is a 31-year-old black male history of schizophrenia and bipolar disorder comes from local [facility] with report of suicidal and homicidal ideation by staff and police. Apparently the patient was attempting to move furniture around inside the boardinghouse when he broke a window and the police were called which came and found the patient sitting out on the porch and the patient was walking away from the police and initially was cooperative, but when a car came approaching he immediately splinted to run directly into its path. the police restrained patient and brought him in. Clinician conducted checking with patient. Patient states he does not want to stay at anybody's house. He continued disclosed that he just wants to be alone. Patient states he has been taking his medications as prescribed. Patient is alert and orientated to person place time and circumstance. Mood is euthymic with flat affect. Patient refuses to answer questions on suicidal ideation. She notes patient has been seen in this emergency department on multiple occasions with similar etiology patient denies homicidal ideation. Patient denies auditory visual hallucinations; patient is not demonstrating any behavior congruent to responding to internal stimuli. No delusions are noted. Thought processes organized and linear. Conversational speech is low with a slow stutter. Eye contact was fair. Intellectual abilities appear to be low average range. Attention and concentration are fair. Insight, judgment, impulse control are poor. Clinician was notified by [facility] staff the patient cheeked his medication and spit it out in the bathroom. Patient then became violent throwing furniture and had to be restrained. 298.9 (F29) Unspecified schizophrenia and other psychotic disorder, per history 296.80 (F31.9) Unspecified bipolar disorder per history 311 (F32.9) Unspecified depressive disorder per history Diabetes, per history Hypertension, per history Impression/plan: Patient is recommended to continue under IVC. Patient will be reevaluated. Dr. Mtz was consulted on the care and management of this patient; attending physician is in agreement with recommendations and disposition.
[2017-02-27] MEDS ORDERED: CLONIDINE HCL 0.1 MG TABLET PO SCH (22:00)
[2017-02-28] MEDS: BENZTROPINE MESYLATE 1 MG TABLET PO SCH (09:53)
[2017-02-28] MEDS: OLANZAPINE 5 MG TABLET PO SCH (09:53)
[2017-02-28] MEDS: DIVALPROEX SODIUM 500 MG TAB.SR.24H PO SCH (09:53)
[2017-02-28] MEDS: FLUOXETINE HCL 20 MG CAPSULE PO SCH (09:56)
--- NOTE | 2017-02-28 09:56 | ER Document Report ---
ED Psych Disorder / Suicide - General Mode of Arrival: Carried TRAVEL OUTSIDE OF THE [place].S. IN LAST 30 DAYS: No <MARK AQUINO - Last Filed: 02/28/17 09:52> <YE SAHA - Last Filed: 02/28/17 10:39> - General Chief Complaint: Psych Problem Stated Complaint: SUICIDIAL IDEATION Time Seen by Provider: 02/25/17 22:03 - HPI Notes: Patient is a 31-year-old black male history of schizophrenia and bipolar disorder comes from local [facility] with report of suicidal and homicidal ideation by staff and police. Apparently the patient was attempting to move furniture around inside the boardinghouse when he broke a window and the police were called which came and found the patient sitting out on the porch and the patient was walking away from the police and initially was cooperative, but when a car came approaching he immediately splinted to run directly into its path. the police restrained patient and brought him in. Patient is observed interacting with [facility] staff, smiling and laughing. Clinician conducted a chart review; no concerns noted by evening staff. Patient states he is ready to go home. Patient is not demonstrating any behaviours that are congruent with responding to internal stimuli; ie good eye contact, organized and linear thoguht processes, and conversational speech is within normal rate tome and prosody. Clinician attempted to contact [facility] [employer] Staff [employer]; left message. [phone] (F29) Unspecified schizophrenia and other psychotic disorder, per history 296.80 (F31.9) Unspecified bipolar disorder per history 311 (F32.9) Unspecified depressive disorder per history Diabetes, per history Hypertension, per history R/O IDD Impression/plan: Patient is recommended for rescind of IVC and is considered psychiatrically clear for discharge. Patient has had behavioral outburst in addition to behavior that is congruent with attempting to achieve secondary gain (i.e. not wanting to stay in current living arrangement at home). Clinician notes this is not the first time the patient has presented to [facility] ED with similar etiology because he was unhappy with his living arrangement within a fci. Patient has a history of cutting and is currently presenting at patient's baseline. Patient will continue with his higher level of care though his assigned ACT Team through [facility]. Dr. Mtz was consulted on the care and management of this patient; attending physician is in agreement with recommendations and disposition. (MARK AQUINO) - Related Data Allergies/Adverse Reactions: codeine Allergy (Verified 12/19/16 18:21) haloperidol [From Haldol] Allergy (Verified 12/19/16 18:21) lisinopril Allergy (Verified 12/19/16 18:21) Home Medications: Current Home Medications Benztropine Mesylate [Benztropine Mesylate 0.5 mg Tablet] 0.5 mg PO Q12 [History] Cholecalciferol (Vitamin D3) [Vitamin D3 1000 Unit Tablet] 1,000 units PO QAM [History] Divalproex Sodium [Depakote] 500 mg PO Q12 02/26/17 [History] Fluoxetine HCl [Prozac 20 mg Capsule] 20 mg PO QAM 02/26/17 [History] Prazosin HCl [Minipress] 5 mg PO QHS 02/26/17 [History] Quetiapine Fumarate [Seroquel] 600 mg PO QHS 02/26/17 [History] Trazodone HCl [Desyrel] 100 mg PO QHS 02/26/17 [History] Past Medical History - General Information source: Patient, [facility] Records, Outside Facility Records - Social History Smoking Status: Never Smoker Chew tobacco use (# tins/day): No Frequency of alcohol use: None Drug Abuse: None Lives with: Other - snf Family History: Reviewed & Not Pertinent Patient has suicidal ideation: Yes Patient has homicidal ideation: Yes - Past Medical History Cardiac Medical History: Reports: Hx Hypercholesterolemia, Hx Hypertension Renal/ Medical History: Denies: Hx Peritoneal Dialysis Psychiatric Medical History: Reports: Hx Bipolar Disorder, Hx Schizophrenia <MARK AQUINO - Last Filed: 02/28/17 09:52> Course - Laboratory Result Diagrams: 02/25/17 23:31 02/25/17 23:31 <MARK AQUINO - Last Filed: 02/28/17 09:52> - Laboratory Result Diagrams: 02/25/17 23:31 02/25/17 23:31 <YE SAHA - Last Filed: 02/28/17 10:39> - Vital Signs Vital signs: Temp Pulse Resp BP Pulse Ox 98.4 F 74 18 123/72 99 02/28/17 05:14 06/02/17 05:14 02/28/17 05:14 02/28/17 05:14 02/28/17 05:14 - Laboratory Laboratory results interpreted by me: 02/25/17 23:31 Glucose 113 H Valproic Acid 36.6 L Discharge <MARK AQUINO - Last Filed: 02/28/17 09:52> <YE SAHA - Last Filed: 02/28/17 10:39> - Discharge Clinical Impression: Homicidal ideation, Non compliance with medical treatment Schizophrenia Qualifiers: Schizophrenia type: unspecified Qualified Code(s): F20.9 - Schizophrenia, unspecified Suicidal behavior Qualifiers: Attempted self-injury: with attempted self-injury Qualified Code(s): T14.91 - Suicide attempt Condition: Stable Disposition: HOME, SELF-CARE Additional Instructions: DEPRESSION: Your evaluation reveals that you have mental depression. While symptoms may be vague, they often include disturbance of sleep, fatigue, loss of appetite , and general loss of interest in life. While depression may be a side effect of drugs, or a reaction to a major change in your life, many cases have no known cause. If depression is acute, and related to a major loss in your life, you can expect it to clear completely with time. If you have been depressed a long time , are prone to repeated bouts of depression or low mood, or have been thinking of suicide, get help. Depression can be treated with anti-depressant medication and counselling. Long-term depression will often take a few weeks to clear, even with appropriate medication. Follow-up care is important. SUICIDAL IDEATION: Suicidal ideation is a common medical term for thoughts about suicide, which may be as detailed as a formulated plan, without the suicidal act itself. Although most people who undergo suicidal ideation do not commit suicide, some go on to make suicide attempts. The range of suicidal ideation varies greatly from fleeting to detailed planning, role playing, and unsuccessful attempts. While thoughts about suicide are common, most people do not carry out serious actions to commit suicide. Based upon your evaluation and discussion with you, we do not believe you are currently at risk to act upon your thoughts of suicide. You have agreed to return to the Emergency Department, at any time , if you feel inclined to act upon your suicidal thoughts. FOLLOW-UP CARE: Please follow up with [facility] and your ACT Team upon discharge. . If you experience worsening or a significant change in your symptoms, notify the physician immediately or return to the Emergency Department at any time for re- evaluation. Referrals: SEAN BOYER MD [Primary Care Provider] - Follow up as needed [facility] [Outside] - 02/28/17
--- NOTE | 2017-02-28 10:01 | ER Document Report ---
Doctor's Note Notes: 02/28/17 09:56 Medical rounds: Chart reviewed and patient interviewed briefly. Patient denies somatic complaints. Vital signs are normal. Laboratory values are satisfactory. Patient is alert, oriented, and conversant. He remains medically stable pending reevaluation by psych.
[2017-02-28 10:39] VITALS: BP 127/57
== END 2017-02-28 10:39 | disposition home or self-care (01) ==
LOC: ER 21:43
DX: R45.851 Suicidal ideations (principal); R45.850 Homicidal ideations; T14.91 Suicide attempt; F31.9 Bipolar disorder, unspecified; F20.9 Schizophrenia, unspecified; E78.00 Pure hypercholesterolemia, unspecified; I10 Essential (primary) hypertension; Z91.19 Patient's noncompliance with other medical treatment and regimen; Z88.6 Allergy status to analgesic agent; Z78.1 Physical restraint status
CPT/HCPCS: 99285; 96372; 36415; 80307 ×2; 85025; 80053; 81001; 80164; J3490 ×11; J3230; J2060; J3486

== ENCOUNTER 2017-02-28 16:23 | Inpatient (IN) | payer MEDICAID ==
--- NOTE | 2017-02-28 16:30 | ER Document Report ---
ED Psych Disorder / Suicide - General Mode of Arrival: Medic Information source: Patient TRAVEL OUTSIDE OF THE [place] IN LAST 30 DAYS: No - HPI Patient complains to provider of: Aggression, Suicidal ideation, Suicidal plan, Suicidal attempt Onset: Just prior to arrival Onset was: Sudden Suicide Risk Factors: Depressed, Male Overdose of: Salicylate Associated symptoms: Depressed Similar symptoms previously: Yes Recently seen / treated by doctor: Yes <JONAH CANNON - Last Filed: 02/28/17 17:39> <KATELYNN MORALES - Last Filed: 03/01/17 05:46> - General Stated Complaint: POSSIBLE OVERDOSE Time Seen by Provider: 02/28/17 16:28 - HPI Notes: Patient is a 31-year-old male who is well known to this emergency room for multiple mental health complaints, who was brought to the emergency room by EMS after attempting to overdose on aspirin at the local [employer], apparently he took between 5 and 10 aspirin stating that he was trying to kill himself, on evaluation patient confirms this was a suicide attempt, states he recently lost his house and he is depressed (JONAH CANNON) - Related Data Allergies/Adverse Reactions: codeine Allergy (Verified 12/19/16 18:21) haloperidol [From Haldol] Allergy (Verified 12/19/16 18:21) lisinopril Allergy (Verified 12/19/16 18:21) paliperidone [From Invega] Allergy (Verified 02/28/17 16:53) ziprasidone [From Geodon] Allergy (Verified 02/28/17 16:53) Past Medical History - General Information source: Patient - Social History Smoking Status: Never Smoker Family History: Reviewed & Not Pertinent - Past Medical History Cardiac Medical History: Reports: Hx Hypercholesterolemia, Hx Hypertension Renal/ Medical History: Denies: Hx Peritoneal Dialysis Psychiatric Medical History: Reports: Hx Bipolar Disorder, Hx Schizophrenia <JONAH CANNON - Last Filed: 02/28/17 17:39> Review of Systems - Review of Systems Constitutional: No symptoms reported EENT: No symptoms reported Cardiovascular: No symptoms reported Respiratory: No symptoms reported Gastrointestinal: No symptoms reported Genitourinary: No symptoms reported Male Genitourinary: No symptoms reported Musculoskeletal: No symptoms reported Skin: No symptoms reported Hematologic/Lymphatic: No symptoms reported Neurological/Psychological: See HPI -: Yes All other systems reviewed and negative <JONAH CANNON - Last Filed: 02/28/17 17:39> Physical Exam - Vital signs Interpretation: Normal - General General appearance: Appears well, Alert - HEENT Head: Normocephalic, Atraumatic Eyes: Normal Pupils: PERRL - Respiratory Respiratory status: No respiratory distress Chest status: Nontender Breath sounds: Normal Chest palpation: Normal - Cardiovascular Rhythm: Regular Heart sounds: Normal auscultation Murmur: No - Abdominal Inspection: Normal Distension: No distension Bowel sounds: Normal Tenderness: Nontender Organomegaly: No organomegaly - Back Back: Normal, Nontender - Extremities General upper extremity: Normal inspection, Nontender, Normal color, Normal ROM , Normal temperature, Other - Multiple scars from previous self injurious cutting behavior General lower extremity: Normal inspection, Nontender, Normal color, Normal ROM , Normal temperature, Normal weight bearing. No: Jaycee's sign - Neurological Neuro grossly intact: Yes Cognition: Normal Orientation: AAOx4 [employer] Coma Scale Eye Opening: Spontaneous [place] Coma Scale Verbal: Oriented Fernando Coma Scale Motor: Obeys Commands [employer] Coma Scale Total: 15 Speech: Normal Motor strength normal: LUE, RUE, LLE, RLE Sensory: Normal - Psychological Associated symptoms: Flat affect - Skin Skin Temperature: Warm Skin Moisture: Dry Skin Color: Normal <JONAH CANNON - Last Filed: 02/28/17 17:39> Course - Laboratory Result Diagrams: 02/28/17 17:00 02/28/17 17:00 - EKG Interpretation by [facility] EKG shows normal: Sinus rhythm Rate: Normal Rhythm: NSR <JONAH CANNON - Last Filed: 02/28/17 17:39> - Laboratory Result Diagrams: 02/28/17 17:00 03/01/17 01:25 <KATELYNN MORALES - Last Filed: 03/01/17 05:46> - Re-evaluation Re-evalutation: 02/28/17 17:41 Patient will remain in the emergency room on IVC paperwork until mental health can fully evaluate him and make recommendations, he is otherwise medically stable for transfer or discharge (JONAH CANNON) 03/01/17 01:05 Patient's repeat aspirin level is elevated at 51. Per nursing, it appears that there were 52 pills missing from the bottle on pt's arrival. Patient is alert and eating a hamburger during my reexam. He does report feeling that his ears are "clogged". He denies any nausea vomiting or abdominal pain. His vital signs do show a tachycardia with a rate of 139. I did discuss the case with [facility] at [facility]. Will alkalinize the urine with bicarb drip. Poison control also recommends po charcoal, even 9 hours out. Will recheck ASA level in 3 hours from most recent check. Patient will require admission. (KATELYNN MORALES) - Vital Signs Vital signs: Temp Pulse Resp BP Pulse Ox 97.4 F 139 H 18 101/73 93 03/01/17 00:48 03/01/17 00:48 03/01/17 05:12 03/01/17 05:01 03/01/17 05:10 - Laboratory Laboratory results interpreted by me: 02/28/17 02/28/17 02/28/17 17:00 17:00 17:00 WBC 11.9 H Absolute Neutrophils 8.8 H VBG pH VBG pCO2 Glucose Calcium Salicylates Acetaminophen < 10 L Valproic Acid 37.9 L 02/28/17 03/01/17 03/01/17 22:30 01:25 01:25 WBC Absolute Neutrophils VBG pH 7.52 H VBG pCO2 26.8 L Glucose 151 H Calcium 10.4 H Salicylates 59.0 H* 55.8 H* Acetaminophen < 10 L Valproic Acid Discharge <JONAH CANNON - Last Filed: 02/28/17 17:39> - Discharge Admitting Provider: Hospitalist - Dr. Thakkar Unit Admitted: ICU <KATELYNN MORALES - Last Filed: 03/01/17 05:46> - Discharge Clinical Impression: Suicidal behavior Qualifiers: Attempted self-injury: with attempted self-injury Qualified Code(s): T14.91 - Suicide attempt Intentional aspirin overdose Qualifiers: Encounter type: initial encounter Qualified Code(s): T39.012A - Poisoning by aspirin, intentional self-harm, initial encounter Aspirin toxicity Qualifiers: Encounter type: initial encounter Injury intent: intentional self-harm Qualified Code(s): T39.012A - Poisoning by aspirin, intentional self-harm, initial encounter Condition: Serious Disposition: ADMITTED INPATIENT
--- NOTE | 2017-02-28 17:03 | EKG REPORT ---
SEVERITY:- ABNORMAL ECG - SINUS TACHYCARDIA LEFT ANTERIOR FASCICULAR BLOCK : Confirmed by: Michelle Bolivar 28-Feb-2017 17:03:38
[2017-02-28 17:17] LABS: ABSOLUTE BASOPHILS # (AUTO) 0.1 10^3/uL (0.0-0.2); ABSOLUTE EOSINOPHILS # (AUTO) 0.1 10^3/uL (0.0-0.6); ABSOLUTE LYMPHOCYTES (AUTO) 2.2 10^3/uL (0.5-4.7); ABSOLUTE MONOCYTES (AUTO) 0.8 10^3/uL (0.1-1.4); ABSOLUTE NEUT (AUTO) 8.8 10^3/uL (1.7-8.2); BASOPHILS % (AUTO) 0.9 % (0-2); EOSINOPHILS % (AUTO) 0.5 % (0-6); HEMATOCRIT 43.1 % (37.9-51.0); HEMOGLOBIN 14.1 g/dL (13.5-17.0); HGB HCT DIFFERENCE -0.8; LYMPHOCYTES % (AUTO) 18.2 % (13-45); MEAN CORPUSCULAR HEMOGLOBIN 27.1 pg (27.0-33.4); MEAN CORPUSCULAR HGB CONC 32.7 g/dL (32.0-36.0); MEAN CORPUSCULAR VOLUME 83 fl (80-97); MONOCYTES % (AUTO) 6.8 % (3-13); RED BLOOD COUNT 5.21 10^6/uL (4.35-5.55); RED CELL DISTRIBUTION WIDTH 13.1 % (11.5-14.0); SEGMENTED NEUTROPHILS % (AUTO) 73.6 % (42-78); WHITE BLOOD COUNT 11.9 10^3/uL (4.0-10.5)
[2017-02-28 18:03] LABS: ALANINE AMINOTRANSFERASE 33 U/L (21-72); ALBUMIN 4.1 g/dL (3.5-5.0); ALCOHOL < 10 mg/dL (NONE DETECTED); ALKALINE PHOSPHATASE 71 U/L (38-126); ANION GAP 15 (5-19); ASPARTATE AMINO TRANSFERASE 37 U/L (17-59); BILIRUBIN,DIRECT 0.3 mg/dL (0.0-0.4); BILIRUBIN,TOTAL 0.4 mg/dL (0.2-1.3); BLOOD UREA NITROGEN 16 mg/dL (7-20); CALCIUM 10.1 mg/dL (8.4-10.2); CARBON DIOXIDE 24 mmol/L (22-30); CHLORIDE 102 mmol/L (98-107); CREATININE RESULT 1.06 mg/dL (0.52-1.25); GLUCOSE 109 mg/dL (75-110); POTASSIUM 4.5 mmol/L (3.6-5.0); SODIUM 140.6 mmol/L (137-145); TOTAL PROTEIN 7.9 g/dL (6.3-8.2)
[2017-02-28 19:18] LABS: APPEARANCE,URINE CLEAR; BILIRUBIN,URINE NEGATIVE (NEGATIVE); GLUCOSE, URINE NEGATIVE (NEGATIVE); KETONES,URINE NEGATIVE (NEGATIVE); LEUKOCYTE ESTERASE,URINE NEGATIVE (NEGATIVE); NITRITE,URINE NEGATIVE (NEGATIVE); PROTEIN,URINE NEGATIVE (NEGATIVE); URINE SPECIFIC GRAVITY 1.008; UROBILINOGEN,URINE NEGATIVE mg/dL (<2.0)
[2017-02-28 19:33] LABS: URINE BARBITURATES SCREEN NEGATIVE; URINE METHADONE SCREEN NEGATIVE; URINE OPIATES LOW NEGATIVE; URINE PHENCYCLIDINE SCREEN NEGATIVE
[2017-02-28] MEDS ORDERED: CLONIDINE HCL 0.1 MG TABLET PO SCH (22:00)
[2017-02-28] MEDS: OLANZAPINE 5 MG TABLET PO SCH (23:00)
[2017-02-28] MEDS: DIVALPROEX SODIUM 500 MG TAB.SR.24H PO SCH (23:00)
[2017-03-01] MEDS ORDERED: NORMAL SALINE 1000 ML 1,000 ML IV ONE (01:11)
[2017-03-01] MEDS ORDERED: DEXTROSE 5%-WATER 1000 ML 1,000 ML with SODIUM BICARBONATE 150 MEQ IV PRN ×4 (01:17→01:51)
[2017-03-01] MEDS ORDERED: ACTIVATED CHARCOAL 25 GM BOTTLE PO ONE (01:18)
[2017-03-01 01:52] LABS: VENOUS BLOOD HCO3 21.3 mmol/L (20-32); VENOUS BLOOD PCO2 26.8 mmHg (35-63); VENOUS BLOOD PH 7.52 (7.30-7.42)
[2017-03-01] MEDS ORDERED: POTASSI CL 40 MEQ/D5-1/2NS 1L 1,000 ML IV ONE (01:54)
[2017-03-01 02:06] LABS: ANION GAP 19 (5-19); BLOOD UREA NITROGEN 14 mg/dL (7-20); CALCIUM 10.4 mg/dL (8.4-10.2); CARBON DIOXIDE 22 mmol/L (22-30); CHLORIDE 104 mmol/L (98-107); CREATININE RESULT 1.19 mg/dL (0.52-1.25); GLUCOSE 151 mg/dL (75-110); POTASSIUM 3.9 mmol/L (3.6-5.0); SODIUM 144.9 mmol/L (137-145)
[2017-03-01] MEDS ORDERED: SODIUM BICARBONATE 8.4% INJ 50 MEQ/50 ML DISP.SYRIN ONE ×3 (02:07→06:26)
[2017-03-01 06:28] LABS: ANION GAP 16 (5-19); BLOOD UREA NITROGEN 14 mg/dL (7-20); CALCIUM 9.4 mg/dL (8.4-10.2); CARBON DIOXIDE 25 mmol/L (22-30); CHLORIDE 102 mmol/L (98-107); CREATININE RESULT 1.16 mg/dL (0.52-1.25); GLUCOSE 108 mg/dL (75-110); MAGNESIUM 1.8 mg/dL (1.6-2.3); POTASSIUM 3.7 mmol/L (3.6-5.0); SODIUM 142.8 mmol/L (137-145)
[2017-03-01 06:46] LABS: ARTERIAL BLOOD BASE EXCESS 4.8 mmol/L
[2017-03-01] MEDS ORDERED: DEXTROSE 50%-WATER 25 GM/50 ML DISP.SYRIN IV PRN (06:51)
[2017-03-01 07:36] LABS: ABSOLUTE BASOPHILS # (AUTO) 0.1 10^3/uL (0.0-0.2); ABSOLUTE EOSINOPHILS # (AUTO) 0.1 10^3/uL (0.0-0.6); ABSOLUTE LYMPHOCYTES (AUTO) 3.5 10^3/uL (0.5-4.7); ABSOLUTE MONOCYTES (AUTO) 1.1 10^3/uL (0.1-1.4); ABSOLUTE NEUT (AUTO) 5.3 10^3/uL (1.7-8.2); EOSINOPHILS % (AUTO) 0.8 % (0-6); HEMATOCRIT 39.8 % (37.9-51.0); HEMOGLOBIN 13.5 g/dL (13.5-17.0); HGB HCT DIFFERENCE 0.7; LYMPHOCYTES % (AUTO) 35.1 % (13-45); MEAN CORPUSCULAR HEMOGLOBIN 27.4 pg (27.0-33.4); MEAN CORPUSCULAR HGB CONC 33.9 g/dL (32.0-36.0); MEAN CORPUSCULAR VOLUME 81 fl (80-97); MONOCYTES % (AUTO) 10.4 % (3-13); RED BLOOD COUNT 4.92 10^6/uL (4.35-5.55); RED CELL DISTRIBUTION WIDTH 13.3 % (11.5-14.0); SEGMENTED NEUTROPHILS % (AUTO) 52.7 % (42-78); WHITE BLOOD COUNT 10.1 10^3/uL (4.0-10.5)
--- NOTE | 2017-03-01 08:07 | PDOC H&P ---
History of Present Illness Admission Date/PCP: 03/01/17 04:54 PCP uncertain Psych Uncertain Patient complains of: overdose History of Present Illness: AROLDO CABRAL is a 31 year old -[place] male with reported underlying bipolar disorder and schizophrenia brought to the emergency room by EMS after attempting to overdose on aspirin at a local [employer] store. As best can be determined, approximately 4 PM on the second, he took 52 full-strength aspirin. Reportedly stated he was trying to kill himself, confirming this was a suicide attempt, stating that he recently lost his house and was depressed. Patient has been discussed with emergency room physician who evaluated the patient. Patient is oriented to year, location, and why he is here, but otherwise provides confused answers to basic questions and is able to provide no reliable history in terms of chronic events, review of systems, personal habits, family history, etc. No friends or family are present. No old inpatient records available for review. According to emergency room physician notes, he is well-known to the emergency room staff. No further information available this point in time. Has remained hemodynamically stable, though somewhat tachycardic. Laboratory results are listed in [facility] and are reviewed. EKG reviewed and compared to prior tracing from the fourth of last month. Social history/personal habits: No information available this point in time. Allergies/adverse reactions are listed in [facility] and are reviewed. Home medications initially autopopulated into [facility] may not accurately reflect patient's true medications, dosages, and/or frequencies. technician preventative medicine to reconcile medications. Unfortunately, patient not able to provide any information related to medications/dosages/frequencies. REVIEW OF SYSTEMS: See history and present illness. No further information available this point in time. PHYSICAL EXAMINATION: 5 feet 5 inches tall. 99.3 kg. BMI 36.4 kg/m. Pulse 117 and regular. 96% saturation on room air. Respirations are 26 and unlabored. Temperature 97.4. Somewhat obese but also somewhat stocky otherwise well-developed - [place] male who appears a bit older than his stated age. Awake. Somewhat tremulous. Cooperative. ER nursing staff and embedded software manager present. Skin is warm and dry. No grossly obvious evidence of rash in areas of skin examined. No subcutaneous nodules palpated. Multiple linear scars on his forearms. ENT: Hearing grossly normal to normal conversation. Tongue midline on protrusion pink and slightly moist. Eyes: No scleral icterus. Pupils equal and reactive to light at 5 mm. [place] conjunctivae. Neck is supple and nontender to gentle active range of motion and palpation. Midline trachea. No palpable thyroid nodule mass enlargement or tenderness. Lymphatic: No palpable cervical or clavicular nodes. Neck and lymphatic exams limited by patient body habitus. Psychiatric: Not able to be adequately evaluated due to current status. See history and present illness. Lungs: Auscultation reveals clear and equal breath sounds bilaterally. No use of accessory respiratory muscles. Cardiovascular: Heart regular rate and rhythm, without gallop murmur or rub. No carotid or abdominal aortic bruits. No ankle or pedal edema. Palpable dorsalis pedis pulses. Abdomen:soft somewhat obese and slightly distended nontender with positive bowel sounds. Unable to adequately evaluate abdomen for masses or organomegaly due to distention and body habitus. Extremities: Feet are warm and dry. No calf tenderness to compression. No grossly obvious visual evidence of calf swelling. Gentle manipulation of lower extremities fails to reveal any obvious evidence of injury or instability to knees hips or ankles. Neurologic: Moves all 4 extremities grossly normally. Patellar reflexes absent. Absent Babinski. Light touch cannot be adequately determined due to his current mental status. Dorsiflexion and plantarflexion of feet 5 / 5 and symmetric. No ankle clonus. No rigidity. Past Medical History Past Medical History: See history and present illness. No further information available this point in time. Psychiatric Medical History: Reports: Bipolar Disorder, Other - Schizophrenia Past Surgical History Past Surgical History: Patient not able to provide any information related to same. Social History Information Source: Emergency Med Personnel, [facility] Records Lives with: Other Smoking Status: Unknown if Ever Smoked Frequency of Alcohol Use: None - Uncertain if drinks alcohol. Hx Recreational Drug Use: No - Unknown history. Drugs: Other - Aspirin overdose - Advance Directive Resuscitation Status: Full Code Surrogate healthcare decision maker:: Uncertain. Family History Family History: Reviewed & Not Pertinent Parental Family History Reviewed: No - Not able to provide any information related to same. Children Family History Reviewed: No - Not able to provide any information related to same. Sibling(s) Family History Reviewed.: No - Not able to provide any information related to same. Medication/Allergy Home Medications: Cholecalciferol (Vitamin D3) [Vitamin D3 1000 Unit Tablet] 1,000 units PO QAM Divalproex Sodium [Depakote] 500 mg PO Q12 02/26/17 Fluoxetine HCl [Prozac 20 mg Capsule] 20 mg PO QAM 02/26/17 Prazosin HCl [Minipress] 5 mg PO QHS 02/26/17 Acetaminophen [Tylenol 325 mg Tablet] 650 mg PO Q4HP PRN tablet 03/04/17 Benztropine Mesylate [Cogentin 1 mg Tablet] 1 mg PO DAILY #30 tablet 03/04/17 Clonidine HCl [Catapres 0.1 mg Tablet] 0.1 mg PO QHS #30 tablet 03/04/17 Olanzapine [Zyprexa 5 mg Tablet] 5 mg PO Q12 #60 tablet 03/04/17 Allergies/Adverse Reactions: codeine Allergy (Verified 12/19/16 18:21) haloperidol [From Haldol] Allergy (Verified 12/19/16 18:21) lisinopril Allergy (Verified 12/19/16 18:21) paliperidone [From Invega] Allergy (Verified 02/28/17 16:53) ziprasidone [From Geodon] Allergy (Verified 02/28/17 16:53) Physical Exam Vital Signs: Temp Pulse Resp BP Pulse Ox 98.7 F 113 H 21 H 105/71 100 03/01/17 07:11 03/01/17 07:11 03/01/17 07:11 03/01/17 07:11 03/01/17 07:11 Intake & Output 02/28/17 03/01/17 03/02/17 00:59 00:59 00:59 Weight 99.3 kg Results Laboratory Results: 03/01/17 07:21 03/01/17 06:01 03/01/17 03/01/17 03/01/17 05:17 05:17 06:01 WBC RBC Hgb Hct MCV MCH MCHC RDW Plt Count Seg Neutrophils % Lymphocytes % Monocytes % Eosinophils % Basophils % Absolute Neutrophils Absolute Lymphocytes Absolute Monocytes Absolute Eosinophils Absolute Basophils Carbonic Acid HCO3/H2CO3 Ratio ABG pH ABG pCO2 ABG pO2 ABG HCO3 ABG O2 Saturation ABG Base Excess FiO2 Sodium Cancelled 142.8 Potassium Cancelled 3.7 Chloride Cancelled 102 Carbon Dioxide Cancelled 25 Anion Gap Cancelled 16 BUN Cancelled 14 Creatinine Cancelled 1.16 Est GFR ( Amer) Cancelled > 60 Est GFR (Non-Af Amer) Cancelled > 60 Glucose Cancelled 108 Calcium Cancelled 9.4 Magnesium Cancelled 1.8 TSH 1.11 03/01/17 03/01/17 06:14 07:21 WBC 10.1 RBC 4.92 Hgb 13.5 Hct 39.8 MCV 81 MCH 27.4 MCHC 33.9 RDW 13.3 Plt Count 193 Seg Neutrophils % 52.7 Lymphocytes % 35.1 Monocytes % 10.4 Eosinophils % 0.8 Basophils % 1.0 Absolute Neutrophils 5.3 Absolute Lymphocytes 3.5 Absolute Monocytes 1.1 Absolute Eosinophils 0.1 Absolute Basophils 0.1 Carbonic Acid 0.98 L HCO3/H2CO3 Ratio 27:1 ABG pH 7.54 H ABG pCO2 32.5 L ABG pO2 95.4 ABG HCO3 26.9 H ABG O2 Saturation 98.0 ABG Base Excess 4.8 FiO2 ROOM AIR Sodium Potassium Chloride Carbon Dioxide Anion Gap BUN Creatinine Est GFR ( Amer) Est GFR (Non-Af Amer) Glucose Calcium Magnesium TSH Assessment & Plan - Diagnosis (1) Bipolar disorder Qualifiers: Active/Remission status: remission status unspecified Qualified Code (s): F31.9 - Bipolar disorder, unspecified Is this a current diagnosis for this admission?: YesPlan: Resume home medications as appropriate once these have been determined and reviewed. (2) Suicide attempt Is this a current diagnosis for this admission?: YesPlan: Suicide precautions. IVC papers have been drawn up by emergency room physician. Psych consult. (3) Schizophrenia Qualifiers: Schizophrenia type: unspecified Qualified Code(s): F20.9 - Schizophrenia, unspecified Is this a current diagnosis for this admission?: YesPlan: Resume home medications as appropriate once these have been determined and reviewed. (4) Intentional aspirin overdose Qualifiers: Encounter type: initial encounter Qualified Code(s): T39.012A - Poisoning by aspirin, intentional self-harm, initial encounter Is this a current diagnosis for this admission?: Yes (5) Aspirin toxicity Qualifiers: Encounter type: initial encounter Injury intent: intentional self-harm Qualified Code(s): T39.012A - Poisoning by aspirin, intentional self-harm, initial encounter Is this a current diagnosis for this admission?: YesPlan: Patient discussed in detail by telephone with Dr. Gray, on-call electrical checkout mechanic at [place] poison control. She recommends continuing bicarb drip at 250 ML's per hour, 3 ampules of bicarb in 1 L D5W. Q. 4 hour salicylate levels to level less than 20. Every 2 hour Accu-Chek. Maintain Accu-Chek and/or serum glucose greater than or equal to 100. If less than 100, give 1 ampule of 50% dextrose. I have strongly encouraged patient not to get out of bed without notifying staff , to avoid a fall with injury. Knee high SCDs for DVT prophylaxis, along with subcutaneous Lovenox. Time spent in evaluation and management of patient: 55 critical-care minutes. - Inpatient Certification Based on my medical assessment, after consideration of the patient's comorbidities, presenting symptoms, or acuity I expect that the services needed warrant INPATIENT care.: Yes I certify that my determination is in accordance with my understanding of Medicare's requirements for reasonable and necessary INPATIENT services [42 CFR 412.3e].: Yes Medical Necessity: Significant Comorbidiites Make Outpatient Treatment Too Risky , Need Close Monitoring Due to Risk of Patient Decompensation, Need For IV Fluids, Need For Continuous Telemetry Monitoring, Risk of Complication if Not Cared For in Hospital Post Hospital Care: D/C or Transfer Summary
--- NOTE | 2017-03-01 08:21 | PSYCHOLOGICAL NOTE ---
Psych Note - Psych Note Psych Note: Clinician received phone call from A [facility] TEAM with concerns about patient. He disclosed that patient contacted them stating he was going to kill himself by taking any medication and get a hold of. Patient was transported to [facility] ED by EMS. Patient was at [facility] where he reportedly was observed by JOSE LUIS taking a handful of aspirin. Patient disclosed that he "wanted to go beyond hurting." He continued that he took the aspirin because "I lost my house." Patient continued to disclose that he really likes his new location of living and does not want to "disrespect" or get "her in trouble" but discloses that the landlord "drinks all the time and does not know what is going on in the house." He continued disclosed that he was feeling really good when he left [facility] ED but when he arrived at his home she told him that he could not stay because he does not take his meds and broke a window. Patient states that "I know I do not take my meds, sometimes I forget, sometimes I just don't want to take them." Patient continued to disclose that the medication normally makes him feel "funny." He then stated that he received from [facility] ED was actually "really good" but he still was not able to stop himself from wanting to . Patient continued disclosed that he does not think the Prozac long enough to help him. Patient is alert and orientated to person place time and circumstance. Mood is euthymic with flat affect. Patient endorses suicidal ideation with attempt patient denies homicidal ideation. Patient denies current auditory visual hallucinations; is not demonstrating any behavior congruent with responding to internal stimuli. No delusions are noted. Thought process is currently organized and linear. Conversational speech was within prosody. Eye contact was well-maintained. Intellectual abilities appear to be within average range. In attention and concentration are fair. Insight, judgment, impulse control are poor. She notes patient was more engaging with clinician than any other [facility] visit. Patient has never spoken directly (before this visit) with clinician in an attempt to reflect on behaviours, with eye contact, or in a full exchange. Unspecified schizophrenia and other psychotic disorder, per history Unspecified bipolar disorder per history Unspecified depressive disorder per history Diabetes, per history Hypertension, per history Impression\\plan: Patient is recommended for IVC is considered a danger to himself. Patient endorses suicidal ideation with current attempts. Dr. Mtz was consulted on the care and management of this patient; attending physician is in agreement with recommendations and disposition.
[2017-03-01] MEDS ORDERED: ENOXAPARIN SODIUM INJ 40 MG/0.4 ML DISP.SYRIN SUBCUT ONE (09:00)
[2017-03-01] MEDS: FLUOXETINE HCL 20 MG CAPSULE PO SCH (09:32)
[2017-03-01] MEDS: BENZTROPINE MESYLATE 1 MG TABLET PO SCH (09:32)
[2017-03-01] MEDS: DOCUSATE SODIUM 100 MG CAPSULE PO SCH ×2 (09:32→17:32)
[2017-03-01] MEDS ORDERED: BENZTROPINE MESYLATE 1 MG TABLET PO SCH (10:00)
[2017-03-01] MEDS ORDERED: FLUOXETINE HCL 20 MG CAPSULE PO SCH (10:00)
[2017-03-01] MEDS ORDERED: DOCUSATE SODIUM 100 MG CAPSULE PO SCH (10:00)
[2017-03-01] MEDS: DEXTROSE 5%-WATER 1000 ML 1,000 ML with SODIUM BICARBONATE 150 MEQ IV PRN ×4 (10:45→15:35)
[2017-03-01 14:46] LABS: ANION GAP 11 (5-19); BLOOD UREA NITROGEN 12 mg/dL (7-20); CALCIUM 8.6 mg/dL (8.4-10.2); CARBON DIOXIDE 32 mmol/L (22-30); CHLORIDE 98 mmol/L (98-107); CREATININE RESULT 1.08 mg/dL (0.52-1.25); GLUCOSE 117 mg/dL (75-110); POTASSIUM 3.3 mmol/L (3.6-5.0); SODIUM 140.6 mmol/L (137-145)
[2017-03-01] MEDS: MAGNESIUM HYDROXIDE SUSP 30 ML UDCUP PO PRN (15:01)
[2017-03-01] MEDS ORDERED: OLANZAPINE 5 MG TABLET PO ONE (15:30)
--- NOTE | 2017-03-01 15:38 | PROGRESS NOTE E ---
Progress Note NAME: AROLDO CABRAL : 1985 AGE: 31Y DATE: 03/01/2017 ROOM: 605 SUBJECTIVE: The patient was seen earlier today on rounds. The patient will awaken but does go right back to sleep. The patient was unable to purposefully answer any questions other than he was not in any pain. The patient has had no reported episodes of vomiting nor diarrhea. The patient's blood pressures have been in a good range. Slightly tachycardia but afebrile. The patient has not been tachypneic. The patient continues on bicarb drip, and patient is currently awaiting repeat chemistries and repeat salicylate level. The patient does not voice any other concerns at this time. REVIEW OF SYSTEMS: A full review of systems cannot be appreciated given the patient's mental status. MEDICATIONS: Have been reviewed. OBJECTIVE: GENERAL: The patient is a 31-year-old -Ira[place] male who is quite groggy. He is unable to provide any history. He does not appear to be in any acute distress. VITAL SIGNS: Temperature is 98.0, pulse 103, respirations 20, blood pressure 129/69, oxygen saturation is 100% on room air. SKIN: Warm and dry. No rash. Not diaphoretic. HEENT: Pupils equal, round, reactive to light and accommodation. Conjunctivae are pink. NECK: There is no JVP. CARDIOVASCULAR: Heart is regular with no murmur or rub. CHEST: Clear, symmetrical, unlabored. ABDOMEN: Soft, nontender, nondistended. BACK: No CVA tenderness or sacral edema. EXTREMITIES: No clubbing, cyanosis, edema. The patient does have multiple healed areas of lacerations on his extremities. PSYCHIATRIC: Unable to fully assess. DIAGNOSTICS: Lab values are as follows: Hematology obtained on 03/01/2017: WBCs are 10.0, hemoglobin is 13.5, hematocrit is 39.8, platelet count is 193,000. Chemistry obtained on 03/01/2017: Sodium is 142, potassium is 3.7, chloride is 102, carbon dioxide 25, BUN 14, creatinine is 1.16, glucose 108, calcium is 9.4, magnesium is 1.8. Salicylate level from 03/01/2017 is pending. IMPRESSION AND PLAN: 1. SALICYLATE OVERDOSE WAS PURPOSEFUL WITH INTENT TO SELF HARM. Will continue IVC. Continue bicarb drip and hydrate. Overall the patient appears much improved and will follow as per Poison Control guidelines. Will continue Accu-Cheks q.2 hours and follow. 2. PSYCHIATRIC ILLNESS INCLUDING BIPOLAR DISORDER AND SCHIZOPHRENIA. The patient was brought to the emergency department after this overdose. Recommendations have been made for stabilizing the medications. Will continue this other than the clonidine and follow. 3. NUTRITION. The patient can resume a regular diet once awake. 4. DVT PROPHYLAXIS. Will continue Lovenox. DISPOSITION: The patient is a FULL CODE. Pending patient's symptomatology and diagnostic findings, will reevaluate if needed. Time spent on this critical care visit including assessment, plan, physical examination, attempt at patient education, and review of the records is 40 minutes. DICTATING PHYSICIAN: ANA SIFUENTES NP [id number] PHY#: [id number] ID: [id number] JOB#: [id number] ACCT: [id number] cc: >
[2017-03-01] MEDS ORDERED: POTASSIUM CHLORIDE 10 MEQ TABLET.SA PO ONE (16:00)
[2017-03-01] MEDS: DIVALPROEX SODIUM 500 MG TAB.SR.24H PO SCH (17:32)
[2017-03-01 19:52] LABS: ANION GAP 11 (5-19); BLOOD UREA NITROGEN 12 mg/dL (7-20); CALCIUM 8.5 mg/dL (8.4-10.2); CARBON DIOXIDE 33 mmol/L (22-30); CHLORIDE 96 mmol/L (98-107); CREATININE RESULT 1.04 mg/dL (0.52-1.25); GLUCOSE 130 mg/dL (75-110); MAGNESIUM 1.7 mg/dL (1.6-2.3); SODIUM 139.5 mmol/L (137-145)
[2017-03-01] MEDS ORDERED: POTASSIUM CHLORIDE 20 MEQ/15 ML UDCUP PO ONE (20:15)
[2017-03-01] MEDS: OLANZAPINE 5 MG TABLET PO SCH (23:14)
[2017-03-01] MEDS: POTASSIUM CHLORIDE 20 MEQ/15 ML UDCUP PO SCH (23:16)
[2017-03-02] MEDS: POTASSIUM CHLORIDE 20 MEQ/15 ML UDCUP PO SCH (00:35)
[2017-03-02] MEDS: MAGNESIUM HYDROXIDE SUSP 30 ML UDCUP PO PRN ×2 (02:12→09:25)
[2017-03-02 02:55] LABS: ANION GAP 11 (5-19); BLOOD UREA NITROGEN 10 mg/dL (7-20); CALCIUM 8.7 mg/dL (8.4-10.2); CARBON DIOXIDE 32 mmol/L (22-30); CHLORIDE 98 mmol/L (98-107); CREATININE RESULT 1.13 mg/dL (0.52-1.25); GLUCOSE 91 mg/dL (75-110); SODIUM 140.6 mmol/L (137-145)
[2017-03-02 03:12] LABS: POTASSIUM 4.1 mmol/L (3.6-5.0)
[2017-03-02] MEDS: BENZTROPINE MESYLATE 1 MG TABLET PO SCH (09:25)
[2017-03-02] MEDS: OLANZAPINE 5 MG TABLET PO SCH ×2 (09:26→21:24)
[2017-03-02] MEDS: FLUOXETINE HCL 20 MG CAPSULE PO SCH (09:26)
[2017-03-02] MEDS: DIVALPROEX SODIUM 500 MG TAB.SR.24H PO SCH ×2 (09:26→17:49)
[2017-03-02] MEDS: DOCUSATE SODIUM 100 MG CAPSULE PO SCH ×2 (09:27→17:49)
[2017-03-02] MEDS: ACETAMINOPHEN 325 MG TABLET PO PRN (09:28)
[2017-03-02] MEDS ORDERED: IBUPROFEN 800 MG TABLET PO PRN (14:24)
[2017-03-02] MEDS ORDERED: HYOSCYAMINE SULFATE 0.125 MG TABLET PO PRN (14:24)
--- NOTE | 2017-03-02 15:59 | PROGRESS NOTE E ---
Progress Note NAME: AROLDO CABRAL : 1985 AGE: 31Y DATE: 03/02/2017 ROOM: 317 SUBJECTIVE: The patient is currently lying in bed. He states he feels better today. The patient admits to some abdominal cramping as well as a headache. The patient denies any nausea, vomiting, shortness of breath, dizziness, chest pain. No fevers or chills. The patient has been afebrile. Blood pressure has been in a good range. The patient does not voice any other concerns at this time. REVIEW OF SYSTEMS: The rest of the review of systems is negative. MEDICATIONS: Have been reviewed. OBJECTIVE: GENERAL: The patient is a 31-year-old -[place] male who is awake, alert, who is oriented to person, place, and time, not fully oriented to situation, unsure of the patient's true insight. He does not appear to be in any acute distress. VITAL SIGNS: Temperature is 97.2, pulse 79, respirations 17, blood pressure 112/68, oxygen saturation is 95% on room air. SKIN: Warm and dry. No rash. Not diaphoretic. HEENT: Pupils equal, round, reactive to light and accommodation. Conjunctivae are pink. NECK: There is no JVP. CARDIOVASCULAR: Heart is regular with no murmur or rub. CHEST: Clear, symmetrical, unlabored. ABDOMEN: Soft, nontender. No area of focal tenderness. BACK: No CVA tenderness or sacral edema. EXTREMITIES: No clubbing, cyanosis, edema. The patient has multiple areas of scarring from self laceration. PSYCHIATRIC: At this time, he is in a pleasant mood, somewhat apathetic. DIAGNOSTIC DATA: Lab values are as follows: Hematology obtained on 03/01/2017: WBC's are 10.1, hemoglobin is 13.5, hematocrit is 39.8, platelet count is 200,000. Chemistry obtained on 03/01/2017: Sodium is 142, potassium is 3.7, chloride is 102, carbon dioxide 25, BUN 16, creatinine is 1.16, glucose 108, calcium is 9.4, bilirubin is 1.8. Toxicology obtained on 03/02/2017: Salicylate level is 7.1. IMPRESSION AND PLAN: 1. SALICYLATE OVERDOSE, WAS PURPOSEFUL WITH INTENT TO SELF HARM. THE PATIENT STATES THAT HE TOOK MANY ASPIRIN HE COULD GET IN HIS MOUTH. The patient's bicarb drip has been discontinued. He has been well hydrated. His numbers are down. The case was discussed with Poison Control. He is otherwise stable. Will discontinue Accu-Cheks. 2. PSYCHIATRIC ILLNESS, INCLUDING BIPOLAR DISORDER AND SCHIZOPHRENIA. The patient is currently under IVC. Will consult Psych for reevaluation. 3. NUTRITION. Will continue a regular diet. 4. DVT PROPHYLAXIS. Will continue Lovenox. DISPOSITION: The patient is a FULL CODE. Pending patient's symptomatology and diagnostic findings, as well as psychiatric input, will reevaluate in the a.m. TIME SPENT: Time spent on this followup including assessment, plan, physical examination, patient education, and review of the records was 25 minutes. DICTATING PHYSICIAN: ANA SIFUENTES NP [id number] PHY#: [id number] ID: [id number] JOB#: [id number] ACCT: [id number] cc: >
[2017-03-03] MEDS: ACETAMINOPHEN 325 MG TABLET PO PRN (01:51)
[2017-03-03] MEDS: DOCUSATE SODIUM 100 MG CAPSULE PO SCH ×2 (10:13→17:14)
[2017-03-03] MEDS: OLANZAPINE 5 MG TABLET PO SCH ×2 (10:13→21:12)
[2017-03-03] MEDS: FLUOXETINE HCL 20 MG CAPSULE PO SCH (10:13)
[2017-03-03] MEDS: DIVALPROEX SODIUM 500 MG TAB.SR.24H PO SCH ×2 (10:13→17:14)
[2017-03-03] MEDS: BENZTROPINE MESYLATE 1 MG TABLET PO SCH (10:13)
--- NOTE | 2017-03-03 15:58 | PROGRESS NOTE E ---
Progress Note NAME: AROLDO CABRAL : 1985 AGE: 31Y DATE: 03/03/2017 ROOM: 317 SUBJECTIVE: The patient is currently sitting up in bed. The patient is constantly fidgeting and rocking. However, he is very pleasant and engaging. He is eating his lunch. The patient denies any nausea or vomiting. No diarrhea, shortness of breath, dizziness, or chest pain. No fever or chills. No command hallucinations at this time. The patient does not voice any other concerns at this time. The patient is a 31-year-old male that is well-known to the ED service due to psychological illnesses. The patient has been seen and evaluated in the emergency department for suicidal ideation from 02/25/2017 to 03/01/2017. The patient has been rescinded and the patient subsequently went to [employer] into with a handful of aspirin, which equated 52 aspirin. Due to his homeless state, the patient stated that he felt hopeless by being homeless and did the attempt in an effort to get back into the hospital. The patient presented quite ill actually. He did receive activated charcoal, but was obtunded with Salicylate level of 60. The patient was aggressively hydrated and is now at his medical baseline. REVIEW OF SYSTEMS: The rest of the review of systems is negative. MEDICATIONS: Medications have been reviewed. OBJECTIVE: The patient is an 31-year-old male who is awake, alert, and oriented to person, place, time, and situation. He is verbal and conversational. He does not appear to be in any acute distress. VITAL SIGNS: Temperature is 98.2, pulse 86, respirations 20, blood pressure 118/85, oxygen saturation is 95% on room air. SKIN: Warm and dry. No rashes. Not diaphoretic. HEENT: Pupils equal, round and reactive to light and accommodation. Conjunctivae are pale. No JVP. CARDIOVASCULAR: Heart is regular. There is no murmur or rub. CHEST: Clear, symmetrical and unlabored. ABDOMEN: Soft, nontender, nondistended. BACK: No CVA tenderness or sacral edema. EXTREMITIES: No clubbing, cyanosis or edema. DIAGNOSTICS: Lab values are as follows. Hematology obtained on 03/01/2017: WBCs are 10.1, hemoglobin is 13.5, hematocrit is 39.8, platelet count is 193,000. Chemistry obtained on 03/02/2017: Sodium is 140, potassium 4.1, chloride is 108, carbon dioxide 32, BUN 10, creatinine 1.13, glucose 91, calcium is 8.7. IMPRESSION AND PLAN: 1. SALICYLATE OVERDOSE, which was purposeful with his intent to self-harm. The patient stated that he took as many aspirins as he could possibly get in his mouth. Bi-carb drips have been discontinued. The patient is hydrated. His numbers were down. Case was discussed with poison control. He is otherwise stable. Discontinued Accu-Checks. 2. PSYCHIATRIC ILLNESSES INCLUDING BIPOLAR DISORDER AND SCHIZOPHRENIA. Currently under IVC. Do appreciate psychiatric evaluation. We will continue current medications. 3. NUTRITION. Continue regular diet. 4. DVT PROPHYLAXIS. We will continue Lovenox. DISPOSITION: The patient is a FULL CODE. Pending patient's symptomatology and diagnostic findings, we will evaluate in the a.m. The patient has been cleared from a medical standpoint for psychiatric placement. Time spent on this followup, including assessment/plan, physical examination, patient education is 20 minutes. DICTATING PHYSICIAN: ANA SIFUENTES NP [id number] PHY#: [id number] ID: [id number] JOB#: [id number] ACCT: [id number] cc: > MTDD
--- NOTE | 2017-03-03 16:54 | PSYCHOLOGICAL NOTE ---
Psych Note - Psych Note Psych Note: Conducted check-in with patient who is a 31-year-old male admitted to [facility] hospitalist services due to intentional salicylate overdose in attempt at suicide. Patient has been downgraded from ICU to floor status. Patient today, per his process safety specialist sitter has just fallen asleep. Patient was easily aroused; however, stated he was very tired. Patient did engage in some conversation and stated he is not sure if his act team is aware of his whereabouts. Patient additionally reported he does not have their phone numbers because they are in his phone downstairs and a walker. Patient states he would like to communicate with his at team and attempt to secure some sort of housing. Patient otherwise states he feels well and is not experiencing thoughts of suicide at this time. Ash OLSEN : left ms requesting return contact. Patient will be reevaluated in the morning to assess for further needs and disposition. We will track. Unspecified schizophrenia and other psychotic disorder, per history Unspecified bipolar disorder per history Unspecified depressive disorder per history Diabetes, per history Hypertension, per history
[2017-03-04] MEDS: MAGNESIUM HYDROXIDE SUSP 30 ML UDCUP PO PRN (05:08)
[2017-03-04] MEDS: BENZTROPINE MESYLATE 1 MG TABLET PO SCH (10:06)
[2017-03-04] MEDS: DOCUSATE SODIUM 100 MG CAPSULE PO SCH (10:06)
[2017-03-04] MEDS: FLUOXETINE HCL 20 MG CAPSULE PO SCH (10:06)
[2017-03-04] MEDS: OLANZAPINE 5 MG TABLET PO SCH (10:06)
[2017-03-04] MEDS: DIVALPROEX SODIUM 500 MG TAB.SR.24H PO SCH (10:06)
[2017-03-04 12:47] VITALS: BP 134/83
--- NOTE | 2017-03-04 15:30 | PDOC DISCHARGE SUMMARY ---
General - Admit/Disc Date/PCP Admission Date/Primary Care Provider: 03/01/17 06:48 Discharge Date: 03/04/17 - Discharge Diagnosis (1) Intentional aspirin overdose Is this a current diagnosis for this admission?: YesSummary: Patient medically cleared. (2) Suicidal behavior Is this a current diagnosis for this admission?: YesSummary: Patient has been seen by psych throughout his hospitalization. Medication adjustments have been made. His behavior is much improved. Dr. Mtz, psychiatry, feels he can be discharged home with outpatient care. (3) Non compliance with medical treatment Is this a current diagnosis for this admission?: YesSummary: Patient will be monitored with a [facility] counseling service (4) Schizophrenia Is this a current diagnosis for this admission?: YesSummary: Continue current psychiatric medications. (5) Bipolar disorder Is this a current diagnosis for this admission?: Yes - Additional Information Resuscitation Status: Full Code Discharge Diet: Regular Discharge Activity: Activity As Tolerated, Balance Activity w/Rest Home Medications: Cholecalciferol (Vitamin D3) [Vitamin D3 1000 Unit Tablet] 1,000 units PO QAM Divalproex Sodium [Depakote] 500 mg PO Q12 02/26/17 Fluoxetine HCl [Prozac 20 mg Capsule] 20 mg PO QAM 02/26/17 Prazosin HCl [Minipress] 5 mg PO QHS 02/26/17 Acetaminophen [Tylenol 325 mg Tablet] 650 mg PO Q4HP PRN tablet 03/04/17 Benztropine Mesylate [Cogentin 1 mg Tablet] 1 mg PO DAILY #30 tablet 03/04/17 Clonidine HCl [Catapres 0.1 mg Tablet] 0.1 mg PO QHS #30 tablet 03/04/17 Olanzapine [Zyprexa 5 mg Tablet] 5 mg PO Q12 #60 tablet 03/04/17 History of Present Illness Patient complains of: Drug overdose History of Present Illness: AROLDO CABRAL is a 31 year old -[place] male with reported underlying bipolar disorder and schizophrenia brought to the emergency room by EMS after attempting to overdose on aspirin at a local [employer] store. As best can be determined, approximately 4 PM on the second, he took 52 full-strength aspirin. Reportedly stated he was trying to kill himself, confirming this was a suicide attempt, stating that he recently lost his house and was depressed. Patient has been discussed with emergency room physician who evaluated the patient. Patient is oriented to year, location, and why he is here but provides confused answers to basic questions and is able to provide no history in terms of chronic events, review of systems, personal habits, family history, etc. No friends or family are present. No old inpatient records available for review. According to emergency room physician notes, he is well-known to the emergency room staff. Hospital Course Hospital Course: He was given IV hydration. Patient was admitted to the ICU on the hospitalist service. Poison control was consulted. He was slighly sedate but arousable. Patient was downgraded following day to IMCU with a sitter. Psychiatry was consulted, saw the patient in consult. Dr. Mtz, psychiatry, made adjustments to the patient's psychiatric medications. Over the next 48 hours patient's behavior was much more coherent and cooperative. Today IVC was lifted by psychiatry. He is medically stable at this time. He will be discharged under the guidance of [facility] counseling group who will help him obtain his prescriptions and monitor his drug intake. Physical Exam Vital Signs: Temp Pulse Resp BP Pulse Ox 97.8 F 89 19 134/83 H 96 03/04/17 14:41 03/04/17 14:41 03/04/17 14:41 03/04/17 14:41 03/04/17 14:41 Intake & Output 03/03/17 03/04/17 03/05/17 06:59 06:59 06:59 Intake Total 1245 487 200 Balance 1245 487 200 Weight 100.8 kg General appearance: PRESENT: no acute distress, obese, well-developed, well- nourished Head exam: PRESENT: atraumatic, normocephalic Eye exam: PRESENT: conjunctiva pink, EOMI, PERRLA. ABSENT: scleral icterus Ear exam: PRESENT: normal external ear exam Mouth exam: PRESENT: moist, tongue midline Neck exam: ABSENT: carotid bruit, JVD, lymphadenopathy, thyromegaly Respiratory exam: PRESENT: clear to auscultation danyelle. ABSENT: rales, rhonchi, wheezes Cardiovascular exam: PRESENT: RRR. ABSENT: diastolic murmur, rubs, systolic murmur Pulses: PRESENT: normal dorsalis pedis pul Vascular exam: PRESENT: normal capillary refill GI/Abdominal exam: PRESENT: normal bowel sounds, soft. ABSENT: distended, guarding, mass, organolmegaly, rebound, tenderness Extremities exam: PRESENT: full ROM. ABSENT: calf tenderness, clubbing, pedal edema Musculoskeletal exam: PRESENT: ambulatory Neurological exam: PRESENT: alert, awake, oriented to person, oriented to place , oriented to time, oriented to situation, CN II-XII grossly intact. ABSENT: motor sensory deficit Psychiatric exam: PRESENT: appropriate affect, normal mood. ABSENT: homicidal ideation, suicidal ideation Skin exam: PRESENT: other - numerous slicing scars on bilateral forearms Results Laboratory Results: 03/01/17 07:21 03/02/17 02:30 Qualifiers PATEINT BEING DISCHARGED WITH ANY OF THE FOLLOWING DIAGNOSIS?: No Plan Discharge Plan: Home Time Spent: Less than 30 Minutes
== END 2017-03-04 15:27 | disposition other institution (70) | DRG 918 ==
LOC: ER 16:23 → UNDOADMIN 03-01 04:54 → EH 03-01 04:54 → ICU 03-01 06:48 → EH 03-01 06:58 → ICU 03-01 06:58 → 3W 03-02 05:54
PROVIDERS: ADMIT Family Medicine; ATTEND Family Medicine
DX: T39.012A Poisoning by aspirin, intentional self-harm, initial encounter (principal); Y92.512 Supermarket, store or market as the place of occurrence of the external cause; T14.91 Suicide attempt; F31.9 Bipolar disorder, unspecified; F20.9 Schizophrenia, unspecified; Z91.14 Patient's other noncompliance with medication regimen; Z79.899 Other long term (current) drug therapy; Z88.8 Allergy status to other drugs, medicaments and biological substances
CPT/HCPCS: 36415; 80048; 80053; 80164; 80307; 81001; 82140; 82803; 82962; 83735; 84443; 85025; 93005; 93010; 96365; 96366; 99285; J1650; J3480; J3490; J7030; J7060